=== PATIENT | male | born 1960 | race Caucasian/White ===

== ENCOUNTER 2025-01-13 09:20 | Outpatient (OUT) | payer OTHER, SELFPAY ==
[2025-01-13 09:55] LABS: Basophils Percent Auto 0.4 % (0.2-2.0); Eosinophils Absolute Auto 0.1 10^3/uL (0.0-0.7); Eosinophils Percent Auto 2.1 % (0.9-7.0); Hemoglobin 16.8 g/dL (14.0-18.0); Immature Granulocytes Abs Auto 0.02 10^3/uL (0.00-0.03); Immature Granulocytes Pct Auto 0.4 % (0.0-0.5); Lymphocytes Absolute Auto 1.5 10^3/uL (1.2-3.8); Lymphocytes Percent Auto 31.7 % (20.5-60.0); Mean Corpuscular Hemoglobin 29.8 pg (25.9-34.0); Mean Corpuscular Volume 85.3 fL (80.0-94.0); Mean Platelet Volume 10.1 fL (9.5-13.5); Monocytes Absolute Auto 0.5 10^3/uL (0.3-0.8); Monocytes Percent Auto 11.5 % (1.7-12.0); Neutrophils Absolute Auto 2.5 10^3/uL (1.4-6.5); Neutrophils Percent Auto 53.9 % (43.0-75.0); Platelet Count 145 10^3/uL (150-450); Red Blood Count 5.63 10^6/uL (4.70-6.10); Red Cell Distribution Width 12.7 % (11.0-15.0); White Blood Count 4.7 10^3/uL (4.0-11.0)
[2025-01-13 10:03] LABS: Estimated Average Glucose 292 mg/dL; Glycohemoglobin A1C 11.8 % (4.5-6.2)
[2025-01-13 10:17] LABS: Creatinine Urine Random 68.54 mg/dL (20.00-300.00); Microalbum Creatinine Ratio Ur 55.4 mg/g (0.0-29.9); Microalbumin Urine Random 3.8 mg/dL (<=30.0)
[2025-01-13 10:21] LABS: Alanine Aminotransferase 30 U/L (16-63); Albumin Globulin Ratio 0.9; Albumin Level 3.5 g/dL (3.4-5.0); Alkaline Phosphatase 90 U/L (46-116); Anion Gap 13.2; Aspartate Amino Transferase 13 U/L (15-37); Bilirubin Total 0.6 mg/dL (0.2-1.0); Calcium 8.9 mg/dL (8.5-10.1); Carbon Dioxide 27.1 mmol/L (21.0-32.0); Chloride 96 mmol/L (98-107); Chol HDL Ratio 7.5; Cholesterol 306 mg/dL (<=200); Estimated GFR (African America >60 (>=60 mL/min/1.73m^2); Estimated GFR (Non-African Ame >60 (>=60 mL/min/1.73m^2); Globulin 3.8 g/dL; Glucose 360 mg/dL (74-106); HDL Cholesterol 41 mg/dL (40-60); Potassium 4.3 mmol/L (3.5-5.1); Sodium 132 mmol/L (136-145); Thyroid Stimulating Hormone 3.043 uIU/mL (0.358-3.740); Total Protein 7.3 g/dL (6.4-8.2); Triglycerides 1208 mg/dL (<=150); VLDL CHOLESTEROL 241.6 mg/dL
[2025-01-13 10:28] LABS: LDL Cholesterol Direct 99 mg/dL
== END 2025-01-13 09:21 | disposition home or self-care (01) ==
PROVIDERS: PCP Family Medicine; Visit Provider Family Medicine
DX: Z00.00 Encounter for general adult medical examination without abnormal findings (principal); E11.65 Type 2 diabetes mellitus with hyperglycemia; E78.5 Hyperlipidemia, unspecified; R07.9 Chest pain, unspecified; I49.8 Other specified cardiac arrhythmias
CPT/HCPCS: 36415; 80053; 80061; 82043; 82570; 83036; 83721; 84443; 85025; G0103

== ENCOUNTER 2025-01-19 09:51 | Outpatient (OUT) | payer OTHER, SELFPAY ==
--- OUTSIDE RECORDS SUMMARY | 2025-01-19 10:03 | XMS_ITS | CCD ---
Author Organization [facility] CliniSywv Care Team Providers Care Betting Agency Manager Name Role Phone CADEN CHARLES Attending Unavailable CADEN CHARLES Referring Unavailable SANJUANA, EMILY Golden Primary Care Unavailable Cardoza, Emily Golden Primary Care Provider [phone] SANJUANA, DR EMILY Golden Consulting Unavailable CARDOZA, DR EMILY Golden Primary Care Unavailable CARDOZA, DR EMILY Golden Attending Unavailable CARDOZA, DR EMILY Golden Admitting Unavailable ZIEBER, DR MARI Cardenas Consulting Unavailable CARDOZA, DR EMILY Golden Consulting Unavailable CARDOZA, DR EMILY Golden Primary Care Unavailable CARDOZA, DR EMILY Golden Attending Unavailable CARDOZA, DR EMILY Golden Admitting Unavailable CARDOZA, DR EMILY Golden Consulting Unavailable CARDOZA, DR EMILY Golden Primary Care Unavailable CARDOZA, DR EMILY Golden Attending Unavailable CARDOZA, DR EMILY Golden Admitting Unavailable CARDOZA, DR EMILY Golden Primary Care Unavailable CARDOZA, DR EMILY Golden Attending Unavailable CARDOZA, DR EMILY Golden Admitting Unavailable CARDOZA, DR EMILY Golden Consulting Unavailable CARDOZA, DR EMILY Golden Primary Care Unavailable CARDOZA, DR EMILY Golden Attending Unavailable CARDOZA, DR EMILY Golden Admitting Unavailable CARDOZA, DR EMILY Golden Consulting Unavailable CARDOZA, DR EMILY Golden Primary Care Unavailable CARDOZA, DR EMILY Golden Attending Unavailable CARDOZA, DR EMILY Golden Admitting Unavailable [place], DR SAMI Zendejas Consulting Unavailable CARDOZA, DR EMILY Golden Consulting Unavailable CARDOZA, DR EMILY Golden Primary Care Unavailable CARDOZA, DR EMILY Golden Attending Unavailable CARDOZA, DR EMILY Golden Admitting Unavailable CARDOZA, DR EMILY Golden Consulting Unavailable CARDOZA, DR EMILY Golden Primary Care Unavailable CARDOZA, DR EMILY Golden Attending Unavailable CARDOZA, DR EMILY Golden Admitting Unavailable ZIEBER, DR MARI Cardenas Consulting Unavailable CARDOZA, DR EMILY Golden Consulting Unavailable CARDOZA, DR EMILY Golden Primary Care Unavailable CARDOZA, DR EMILY Goledn Attending Unavailable CARDOZA, DR EMILY Golden Admitting Unavailable TIMMIS, DR LORENZO Consulting Unavailable CARDOZA, DR EMILY Golden Primary Care Unavailable TIMMIS, DR LORENZO Attending Unavailable DR BJ LEDESMA Admitting Unavailable DR SAMI TEJEDA V Consulting Unavailable DR EMILY CARDOZA Consulting Unavailable DR EMILY CARDOZA Primary Care Unavailable DR EMILY CARDOZA Attending Unavailable DR EMILY CARDOZA Admitting Unavailable DR SAMI TEJEDA V Consulting Unavailable Medications Current Medications Medication Drug Class(es) Dates Sig (Normalized) Sig (Original) azithromycin 250 mg oral tablet (1 source) Macrolide Antimicrobial Start: 01-10-2025 Azithromycin 250 mg tablet Active 0 PO .COMPLEX January 10, 2025 12:00am For 250 mg dose pack: take 500 mg today (day 1), then 250 mg for 4 days (days 2-5) PO Completed/Discontinued Medications Medication Drug Class(es) Dates Sig (Normalized) Sig (Original) iopamidol (ISOVUE-370) 76 % injection 75 mL (1 source) Start: 09-08-2019 End: 09-08-2019 iopamidol (ISOVUE-370) 76 % injection 75 mL Problems Active Problems Problem Classification Problem Date Documented Date Episodic/Chronic Diabetes mellitus with complications (14 sources) Type 2 diabetes mellitus with diabetic polyneuropathy; Translations: [Type 2 diabetes mellitus with unspecified complications] Onset: 01-10-2021 Chronic Diabetes mellitus without complication (1 source) Type 2 diabetes mellitus without complications; Translations: [TYPE 2 DM WITHOUT COMPLICATIONS] Onset: 03-16-2021 Chronic Disorders of lipid metabolism (4 sources) Pure hyperglyceridemia; Translations: [Pure hypercholesterolemia, unspecified] Onset: 01-12-2021 01-10-2025 Chronic Malaise and fatigue (1 source) Other fatigue; Translations: [OTHER FATIGUE] Onset: 10-20-2021 Episodic Nonspecific chest pain (6 sources) Chest pain, unspecified; Translations: [Chest pain] Onset: 03-12-2021 Episodic Spondylosis; intervertebral disc disorders; other back problems (1 source) Other cervical disc degeneration, cervicothoracic region; Translations: [OTH CERV DISC DEGENERATION CT RGN] Onset: 02-01-2021 Chronic Thyroid disorders (4 sources) Hypothyroidism, unspecified; Translations: [HYPOTHYROIDISM UNSPECIFIED] Onset: 10-19-2021 Chronic Unclassified (2 sources) CONTACT W/AND (SUSP) EXPOS COVID-19; Translations: [CONTACT W/AND (SUSP) EXPOS COVID-19] Onset: 10-27-2021 Viral infection (1 source) COVID-19; Translations: [COVID-19] Onset: 10-27-2021 Past or Other Problems Problem Classification Problem Date Documented Date Episodic/Chronic Other ear and sense organ disorders (4 sources) Tinnitus, left ear; Translations: [TINNITUS LEFT EAR] Onset: 05-10-2021 Episodic Other non-traumatic joint disorders (1 source) Pain in left hip; Translations: [PAIN IN LEFT HIP] Onset: 08-24-2021 Episodic Other non-traumatic joint disorders (1 source) Pain in right shoulder; Translations: [PAIN IN RIGHT SHOULDER] Onset: 02-01-2021 Episodic Other non-traumatic joint disorders (1 source) Pain in left shoulder; Translations: [PAIN IN LEFT SHOULDER] Onset: 02-01-2021 Episodic Other skin disorders (1 source) Mass of neck; Translations: [Neck mass] Episodic Spondylosis; intervertebral disc disorders; other back problems (5 sources) Cervicalgia; Translations: [Spinal stenosis, cervicothoracic region] Onset: 01-29-2021 Episodic Unclassified (1 source) CONTACT W/AND (SUSP) EXPOS COVID-19; Translations: [CONTACT W/AND (SUSP) EXPOS COVID-19] Onset: 10-22-2021 Results Test Name Value Interpretation Reference Range Facility [facility] 08-18-2023 Forms [id number] Normal [facility] Covid-19 PCR (CVDTBH)on SARS-CoV-2 (COVID-19) RNA BELLE+probe Ql (Unsp spec) Detected Critically abnormal NOT DETECTED The [facility] Comment on above: Result Comment: This test is not yet approved or cleared by the [place] FDA. When there are no FDA-approved or cleared tests available, and other criteria are met, FDA can make tests available under an emergency access mechanism called an Emergency Use Authorization (EUA). The EUA for this test is supported by the Gift Basket Packer of Health and Human Service's (HHS's) declaration that circumstances exist to justify the emergency use of in vitro diagnostics for the detection and/or diagnosis of the virus that causes COVID-19. This EUA will remain in effect (meaning this test can be used) for the duration of the COVID-19 declaration justifying emergency of IVDs, unless it is terminated or revoked by FDA (after which the test may no longer be used). Performed By: #### M ISC #### [facility] [address] [place] [address] Dr. Eva Silva US THYROIDon 10-19-2021 US THYROID EXAMINATION: US THYROID HISTORY: Hypothyroidism COMPARISON: No relevant comparison available. TECHNIQUE: Sonographic images of the thyroid gland were obtained. FINDINGS: The right thyroid lobe is normal in size, contour and homogeneous echotexture with no nodule. The lobe measures 4.2 x 1.2 x 1.5 cm. The thyroid isthmus measures 3.2 mm, no nodule. The left thyroid lobe is normal in size, contour and homogeneous echotexture without contrast. The lobe measures 4.1 x 1.2 x 1.8 cm IMPRESSION: Normal exam Electronically authenticated by: SAMI TEJEDA Date: 2021-10-19 11:51 Normal [facility] FREE T3on 10-15-2021 FREE T3 2.73 pg/mlL Critically low 2.77-5.27 [facility] Comment on above: Performed By: #### M ISC #### [facility] [address] [place] [address] Dr. Eva Silva FREE T4on 10-15-2021 Free T4 [Mass/Vol] 0.75 ng/dL Critically low 0.78-2.19 [facility] Comment on above: Performed By: #### F T4 #### [facility] [address] [place] [address] Dr. Eva Silva GLYCOHEMOGLOBIN A1Con 2020 ADA RECOMMENDATION ADA THERAPEUTIC TARGET 6.0 - 7.0 ACTION SUGGESTED > 7.0 [facility] Comment on above: Result Comment: lanre gelacio Performed By: #### A 1C #### [facility] [address] [place] [address] Dr. Eva Silva Glucose [Mass/Vol] 235 mg/dL Normal [facility] Comment on above: Performed By: #### A 1C #### [facility] [address] [address] [address] Eva Silva HbA1c (Bld) [Mass fraction] 9.8 % Critically high <=6.0 [facility] Comment on above: Performed By: #### A 1C #### [facility] [address] [address] [address] Eva Silva LAB TESTINGon 10-15-2021 RECV HEADER SEE SCANNED REPORT IN HPF Normal [facility] Comment on above: Performed By: #### M ISC #### [facility] [address] [address] [address] Eva Silva REV FROM REF LAB 10/18/2021 Normal [facility] Comment on above: Performed By: #### M ISC #### [facility] [address] [place] [address] Dr. Eva Silva SENT TO REF LAB sent 10/15/21 for CMP14; lipemia Normal [facility] Comment on above: Performed By: #### M ISC #### [facility] [address] [place] [address] Dr. Eva Silva TSHon 10-15-2021 TSH 2.225 uIU/mL Normal 0.470-4.680 [facility] Comment on above: Performed By: #### M ISC #### [facility] [address] [place] [address] Dr. Eva Silva TSH RANGE SEE BELOW Normal [facility] Comment on above: Result Comment: <0.3 4 UIU/ml HYPERTHYROID 0.34-5.60 UIU/ml EUTHYROID >5.60 UIU/ml HYPOTHYROID Performed By: #### M ISC #### [facility] [address] [place] [address] Dr. Eva Silva PROF CHEM 8 (BAS METB)on Anion gap [Moles/Vol] 10.2 mmol/L Normal [facility] Comment on above: Performed By: #### B MP #### [facility] [address] [place] [address] Dr. Eva Silva Calcium [Mass/Vol] 8.8 mg/dL Normal 8.4-10.2 [facility] Comment on above: Performed By: #### B MP #### [facility] [address] [address] [address] Eva Silva Chloride [Moles/Vol] 100 mmol/L Normal 98-107 [facility] Comment on above: Performed By: #### B MP #### [facility] [address] [address] [address] Eva Silva CO2 [Moles/Vol] 29.3 mmol/L Normal 22.0-30.0 [facility] Comment on above: Performed By: #### B MP #### [facility] [address] [address] [address] Eva Silva Creatinine [Mass/Vol] 0.67 mg/dL Normal 0.66-1.25 [facility] Comment on above: Performed By: #### B MP #### [facility] [address] [place] [address] Dr. Eva Silva EGFR-AF QATARI >60 Normal >=60 [facility] Comment on above: Performed By: #### B MP #### [facility] [address] [address] [address] Eva Silva EGFR-NON AF QATARI >60 Normal >=60 [facility] Comment on above: Performed By: #### B MP #### [facility] [address] [place] [address] Dr. Eva Silva Glucose [Mass/Vol] 225 mg/dL Critically high 74-106 [facility] Comment on above: Performed By: #### B MP #### [facility] [address] [address] [address] Eva Silva Potassium [Moles/Vol] 4.5 mmol/L Normal 3.4-5.0 [facility] Comment on above: Performed By: #### B MP #### [facility] [address] [address] [address] Eva Silva Sodium [Moles/Vol] 135 mmol/L Critically low 137-145 [facility] Comment on above: Performed By: #### B MP #### [facility] [address] [address] [address] Eva Silva Urea nitrogen [Mass/Vol] 14.0 mg/dL Normal 9.0-20.0 [facility] Comment on above: Performed By: #### B MP #### [facility] [address] [address] [address] Eva Silva Urea nitrogen/Creatinine [Mass ratio] 20.9 mg/mg Normal [facility] Comment on above: Performed By: #### B MP #### [facility] [address] [address] [address] Eva Silva CNCOon 07-16-2021 CNCO Letter Text Normal [facility] CNOVon 07-12-2021 CNOV Office Visit (EVELYN) MAHIN TAPIA ([id number]) 1960 M Date Time Provider Department 07/12/21 2:20 PM SUZANNE BOYLE During your visit today, we recorded the following information about you: Temperature Pulse Blood pressure Weight 98.4 degrees 70/minute 126/81 98.2 kg Height 1.829 m Moon Reilly Ma 07/12/2021 1:09 PM Signed What is the reason for your visit today? est Who is your referring physician? Dr. Boyle Are you having poor oral intake? NO Have you had unintentional weight loss of 15 lbs/7 Kg in the last 3-6 months? NO Bowels: regular Wound: clean AND dry Temperature: No Drains: No Reese Winchester MD 07/12/2021 3:41 PM Signed General Surgery New Patient Clinic Note CHIEF COMPLAINT: Incisional hernias HPI: This is a 61 year old male who presents for evaluation of recurrent incisional hernias. Patient has a history of HTN, hyperlipidemia, pancreatitis, and poorly controlled diabetes. He has a history of severe pancreatitis in ~2004 for which he underwent an exploratory laparotomy and appendectomy. This was complicated by a ventral incisional hernia for which he had retromuscular repair with GoreTex mesh in 2006. He had recurrence soon after this surgery. No bowel obstructions, the hernias do not cause him pain. He was evaluated in [address] Boyle and was scheduled for AWR, however, due to his very poor blood glucose control A1c >11 this surgery was cancelled. He returns to clinic to discuss reconsideration of hernia repair - of note, recent A1c is reportedly 10.3, he takes metformin and no insulin for DM. FHx: No family history of bleeding or clotting disorders. SocHx: Social History Tobacco Use - Smoking status: Former Smoker Packs/day: 1.00 Years: 6.00 Pack years: 6.00 Types: Cigarettes Quit date: 1978 Years since quittin.6 - Smokeless tobacco: Never Used Vaping Use - Vaping Use: Never used Substance Use Topics - Alcohol use: Not on file - Drug use: Not on file Prior to Admission Medications: FARXIGA 5 mg tablet Take 5 mg by mouth every morning. atorvastatin (LIPITOR) 40 mg tablet Take 1 tablet by mouth once daily. metFORMIN (GLUCOPHAGE) 500 mg tablet Take 2 tablets by mouth once daily. ALLERGIES: ALLERGIES Allergen Reactions - Amoxicillin Itching COMPLETE REVIEW OF SYSTEMS: GENERAL: No weight loss, malaise or fevers HEENT: Negative for frequent or significant headaches, No changes in hearing or vision, no nose bleeds or other nasal problems RESPIRATORY: Negative for cough, hemoptysis, wheezing, COPD, dyspnea or shortness of breath CARDIOVASCULAR: Negative for chest pain, leg swelling, hypertension, CHF or palpitations GI: No nausea, vomiting, or diarrhea : No history of dysuria, frequency or incontinence MUSCULOSKELETAL: Negative for joint pain or swelling, back pain or muscle pain HEMATOLOGY/LYMPHOLOG Y Negative for prolonged bleeding, bruising easily or swollen nodes ENDOCRINE: Negative for cold or heat intolerance, polyuria, polydipsia and goiter NEURO: No history of headaches, syncope, paralysis, seizures or tremors PHYSICAL EXAM: BP 126/81 Pulse 70 Temp (Src) 98.4 (Tympanic) Ht 6' 0 (1.83m) Wt 216 lb 6.4 oz (98.2kg) BMI 29.34 kg/(m2). Constitutional: The patient is well-developed, well-nourished, and in no distress. Head: Normocephalic and atraumatic. Eyes: Pupils are equal, round, and reactive to light. EOM are normal. Neck: Normal range of motion. Neck supple. Cardiovascular: Regular rhythm and normal heart sounds. Pulmonary/Chest: Effort normal and breath sounds normal. Abdominal: Soft. Nontender. Multiple incisional hernias, reducible and soft. Musculoskeletal: Normal range of motion. Neurological: He is alert. GCS score is 15. Skin: Skin is warm and dry. Psychiatric: Affect and judgment normal. CT abd/pelvis reviewed: Multiple ventral incisional hernias containing small bowel A: 61 year old male with recurrent incisional hernias following retromuscular repair with GoreTex in 2006. He had planned for repair in 2019 by this was cancelled due to poor blood glucose control. He returns today to discuss consideration of repair, still with poor A1c. We will refer to endocrinology to optimize his blood glucose and consider repair following. P: - refer to endocrinology - RTC 3 months Resee Winchester MD General Surgery, PGY-5 Pager: [phone] Suzanne Boyle MD 07/12/2021 3:41 PM Signed Patient returns and hernia is stable, but a1c is still over 10. We are setting him up with our endocrine team and hopefully we can get it below 7 and plan for surgery. I'll see him back in 3 months to hopefully schedule surgery. I have seen and evaluated the patient and discussed the case with the resident physician. I agree with the assessment and plan as documented in the reside (more content not included)... Normal [facility] CBC AUTO DIFFon 06-21-2021 BASO # 0.0 103/ul Normal 0.0-0.1 The [facility] Comment on above: Performed By: #### M ISC #### [facility] [address] [place], [place] [address] Dr. Eva Silva Basophils/100 WBC (Bld) 0.2 % Normal 0.2-2.0 [facility] Comment on above: Performed By: #### M ISC #### [facility] [address] [place], [place] [address] Dr. Eva Silva EO # 0.1 103/ul Normal 0.0-0.7 [facility] Comment on above: Performed By: #### M ISC #### [facility] [address] [place] [address] Dr. Eva Silva Eosinophils/100 WBC (Bld) 2.1 % Normal 0.9-7.0 [facility] Comment on above: Performed By: #### M ISC #### [facility] [address] [place] [address] Dr. Eva Silva Erythrocyte distribution width (RBC) [Ratio] 13.0 % Normal 11.0-15.0 [facility] Comment on above: Performed By: #### M ISC #### [facility] [address] [place] [address] Dr. Eva Silva Hematocrit (Bld) [Volume fraction] 44.1 % Normal 42.0-54.0 [facility] Comment on above: Performed By: #### M ISC #### [facility] [address] [place] [address] Dr. Eva Silva Hemoglobin (Bld) [Mass/Vol] 15.2 g/dL Normal 14.0-18.0 [facility] Comment on above: Performed By: #### M ISC #### [facility] [address] [place] [address] Dr. Eva Silva IG # 0.01 10e3/ul Normal 0.00-0.03 [facility] Comment on above: Performed By: #### M ISC #### [facility] [address] [place] [address] Dr. Eva Silva IG % 0.2 % Normal 0.0-0.5 [facility] Comment on above: Performed By: #### M ISC #### [facility] [address] [place] [address] Dr. Eva Silva LYMPH # 1.4 103/ul Normal 1.2-3.8 [facility] Comment on above: Performed By: #### M ISC #### [facility] [address] [place] [address] Dr. Eva Silva Lymphocytes/100 WBC (Bld) 32.9 % Normal 20.5-60.0 [facility] Comment on above: Performed By: #### M ISC #### [facility] [address] [place] [address] Dr. Eva Silva MANUAL DIFF REQ NO Normal [facility] Comment on above: Performed By: #### M ISC #### [facility] [address] [place] [address] Dr. Eva Silva MCH (RBC) [Entitic mass] 30.2 pg Normal 25.9-34.0 [facility] Comment on above: Performed By: #### M ISC #### [facility] [address] [place] [address] Dr. Eva Silva MCHC (RBC) [Mass/Vol] 34.5 g/dL Normal 29.9-35.2 [facility] Comment on above: Performed By: #### M ISC #### [facility] [address] [place] [address] Dr. Eva Silva MCV (RBC) [Entitic vol] 87.5 fL Normal 80.0-94.0 [facility] Comment on above: Performed By: #### M ISC #### [facility] [address] [place] [address] Dr. Eva Silva MONO # 0.5 103/ul Normal 0.3-0.8 [facility] Comment on above: Performed By: #### M ISC #### [facility] [address] [place] [address] Dr. Eva Silva Monocytes/100 WBC (Bld) 12.8 % Critically high 1.7-12.0 [facility] Comment on above: Performed By: #### M ISC #### [facility] [address] [place] [address] Dr. Eva Silva NEUT # 2.2 103/ul Normal 1.4-6.5 [facility] Comment on above: Performed By: #### M ISC #### [facility] [address] [place] [address] Dr. Eva Silva Neutrophils/100 WBC (Bld) 51.8 % Normal 43.0-75.0 [facility] Comment on above: Performed By: #### M ISC #### [facility] [address] [place] [address] Dr. Eva Silva Platelet mean volume (Bld) [Entitic vol] 10.1 fL Normal 9.5-13.5 [facility] Comment on above: Performed By: #### M ISC #### [facility] [address] [place] [address] Dr. Eva Silva PLT 162 103/ul Normal 150-450 [facility] Comment on above: Performed By: #### M ISC #### [facility] [address] [place] [address] Dr. Eva Silva RBC 5.04 106/ul Normal 4.70-6.10 [facility] Comment on above: Performed By: #### M ISC #### [facility] [address] [place] [address] Dr. Eva Silva WBC 4.2 103/ul Normal 4.0-11.0 [facility] Comment on above: Performed By: #### M ISC #### [facility] [address] [place] [address] Dr. Eva Silva PROF 14(COMP METB)on 021 Albumin [Mass/Vol] 3.7 g/dL Normal 3.5-5.0 [facility] Comment on above: Performed By: #### C MP #### [facility] [address] [place], [place] [id number] Octaviano Opal Albumin/Globulin [Mass ratio] 1.1 {ratio} Normal [facility] Comment on above: Performed By: #### C MP #### [facility] [address] [place] [address] Octaviano Opal ALP [Catalytic activity/Vol] 61 U/L Normal 38-126 [facility] Comment on above: Performed By: #### C MP #### [facility] [address] [place] [address] Octaviano Opal ALT [Catalytic activity/Vol] 25 U/L Normal 21-72 [facility] Comment on above: Performed By: #### C MP #### [facility] [address] [address] Octaviano Opal Anion gap [Moles/Vol] 13.0 mmol/L Normal [facility] Comment on above: Performed By: #### C MP #### [facility] [address] [address] Octaviano Opal AST [Catalytic activity/Vol] 14 U/L Critically low 17-59 [facility] Comment on above: Performed By: #### C MP #### [facility] [address] [address] Octaviano Opal Bilirubin [Mass/Vol] 0.4 mg/dL Normal 0.2-1.3 [facility] Comment on above: Performed By: #### C MP #### [facility] [address] [place] [address] Octaviano Opal Calcium [Mass/Vol] 8.9 mg/dL Normal 8.4-10.2 [facility] Comment on above: Performed By: #### C MP #### [facility] [address] [place] [address] Octaviano Opal Chloride [Moles/Vol] 102 mmol/L Normal 98-107 [facility] Comment on above: Performed By: #### C MP #### [facility] [address] [place] [address] Octaviano Opal CO2 [Moles/Vol] 28.1 mmol/L Normal 22.0-30.0 [facility] Comment on above: Performed By: #### C MP #### [facility] [facility] [address] [place] [address] Octaviano Opal Creatinine [Mass/Vol] 0.83 mg/dL Normal 0.66-1.25 [facility] Comment on above: Performed By: #### C MP #### [facility] [address] [place], [place] [id number] Octaviano Opal EGFR-AF QATARI >60 Normal >=60 [facility] Comment on above: Performed By: #### C MP #### [facility] [address] [place] [address] Octaviano Opal EGFR-NON AF QATARI >60 Normal >=60 [facility] Comment on above: Performed By: #### C MP #### [facility] [address] [place], [place] [address] Octaviano Opal Globulin (S) [Mass/Vol] 3.3 g/dL Normal [facility] Comment on above: Performed By: #### C MP #### [facility] [address] [id number] Octaviano Opal Glucose [Mass/Vol] 238 mg/dL Critically high 74-[address] [facility] Comment on above: Performed By: #### C MP #### [facility] [address] [id number] Octaviano Opal Potassium [Moles/Vol] 4.1 mmol/L Normal 3.4-5.0 [facility] Comment on above: Performed By: #### C MP #### [facility] [address] [id number] Octaviano Opal Protein [Mass/Vol] 7.0 g/dL Normal 6.1-8.2 [facility] Comment on above: Performed By: #### C MP #### [facility] [address] [id number] Octaviano Opal Sodium [Moles/Vol] 139 mmol/L Normal 137-145 [facility] Comment on above: Performed By: #### C MP #### [facility] [address] [id number] Octaviano Opal Urea nitrogen [Mass/Vol] 16.0 mg/dL Normal 9.0-20.0 [facility] Comment on above: Performed By: #### C MP #### [facility] [address] [id number] Octaviano Opal Urea nitrogen/Creatinine [Mass ratio] 19.3 mg/mg Normal [facility] Comment on above: Performed By: #### C MP #### [facility] [address] [place], [place] [address] Octaviano Opal DIRECT LDLon 06-11-2021 Cholesterol in LDL [Mass/Vol] 77 mg/dL Normal [facility] Comment on above: Performed By: #### D LDL, LIPID #### [facility] [address] [place], [place] [address] Octaviano Joseph DLDL NORMAL SEE BELOW Normal [facility] Comment on above: Result Comment: <100 mg/dl OPTIMAL 100 - 129 mg/dl NEAR OR ABOVE OPTIMAL 130 - 159 mg/dl BORDERLINE HIGH 160 - 189 mg/dl HIGH >190 mg/dl VERY HIGH Performed By: #### D LDL, LIPID #### [facility] [address] [place], [place] [address] Octaviano Joseph GLYCOHEMOGLOBIN A1Con 2020 ADA RECOMMENDATION ADA THERAPEUTIC TARGET 6.0 - 7.0 ACTION SUGGESTED > 7.0 Normal [facility] Comment on above: Performed By: #### A 1C #### [facility] [address] [place], [place] [address] Octaviano Opal Glucose [Mass/Vol] 249 mg/dL Normal [facility] Comment on above: Performed By: #### A 1C #### [facility] [address] [place], [place] [address] Octaviano Joseph HbA1c (Bld) [Mass fraction] 10.3 % Critically high <=6.0 [facility] Comment on above: Performed By: #### A 1C #### [facility] [address] [place], [place] [address] Octaviano Joseph LIPID PROFILEon 06-11-2021 CHOL-HDL RATIO NORM SEE BELOW Normal [place] Comment on above: Result Comment: 3.3 - 4.4 LOW RISK 4.4 - 7.1 AVERAGE RISK 7.1 - 11.0 MODERATE RISK >11.0 HIGH RISK Performed By: #### D LDL, LIPID #### [facility] [address] [place], [place] [address] Octaviano Opal Cholesterol [Mass/Vol] 228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 with poor A1c. We will refer to endocrinology to optimize his blood glucose and consider repair following. P: - refer to endocrinology - RTC 3 months Reese Winchester MD General Surgery, PGY-5 Pager: [phone] [facility] Clinical Note 05-10-2021 Note Date & Type Note Facility 05-10-2021 Note PROCEDURE: MRI BRAIN WO W CON COMPARISON: None. HISTORY: Tinnitus of left ear TECHNIQUE: A variety of imaging planes and parameters were utilized for visualization of suspected pathology. Images were performed without and with 20 ml intravenous Dotarem contrast. FINDINGS: IACS: No evidence of acoustic schwannoma or other posterior fossa mass. INNER EARS: No abnormal signal intensity. MIDDLE EARS: No fluid or abnormal soft tissue. MASTOIDS: No fluid or abnormal soft tissue. SKULL BASE: Negative. Cavernous sinus and Meckel's caves are normal. CEREBRUM: No edema, hemorrhage, mass, acute infarction, or inappropriate atrophy. Mild scattered hyperintense foci are present, typical for a patient of this age, most commonly caused by small vessel ischemic changes. CEREBELLUM: No edema, hemorrhage, mass, acute infarction, or inappropriate atrophy. BRAINSTEM: No edema, hemorrhage, mass, acute infarction, or inappropriate atrophy. CSF SPACES: Ventricles, cisterns, and sulci are appropriate for age. No hydrocephalus, subarachnoid hemorrhage, or mass. SINUSES: Limited views demonstrate no significant mucosal thickening or fluid. ORBITS: Limited views are unremarkable. OTHER: No abnormal meningeal or parenchymal enhancement. IMPRESSION: Mild scattered white matter signal abnormality, nonspecific. Chronic small vessel ischemic changes favored No focal or enhancing mass to suggest an acoustic schwannoma Electronically authenticated by: SAMI TEJEDA Date: 2021-05-10 11:30 [facility] Evaluation note Note Date & Type Note Facility Evaluation note Diagnosis Onset Date Resolution Chest pain acute January 10, 2025 10:16am Hyperlipidemia acute December 192024 10:16am Type 2 diabetes mellitus with hyperglycemia acute December 10:16am [facility] Work Phone: Summary Purpose Family History No Family History Records FoundNo Family History Records FoundNo Family History Records FoundNo Family History Records Found Advance Directives Documents on File Type Date Recorded 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 Advance Directives and Livin g Will 09/08/2019 3:31 PM Advance Directive Response Recorded Date/ Time Advance Directives No December 11:34am Reason for Referral Status Reason Specialty Diagnoses / Procedures Referred By Contact Referred To Contact Pending Review Radiology Diagnoses Neck mass Procedures CT Soft Tissue Neck With Contrast Caden Charles, DDS [address] [place] [address] Assessments Diagnosis Neck mass Swelling, mass, or lump in head and neck Chief Complaint and Reason for Visit Chief Complaint Admit Date Est Care/No VM Box January 10, 2025 10:16am Reason for Visit Admit Date Chest pain January 10, 2025 10:16am Hyperlipidemia January 10, 2025 10:16am Type 2 diabetes mellitus with hyperglyce kelli January 10, 2025 10:16am Additional Source Comments (unrecognized sect ion and content) No Status Records FoundNo Status Records FoundNo Status Records FoundNo Status Records Found INFORMATION SOURCE (unrecogn ized section and content) DATE CREATED AUTHOR 09/10/2019 [facility] DATE CREATED AUTHOR AUTHOR'S ORGANIZ ATION 12/27/2021 [facility] DATE CREATED AUTHOR AUTHOR'S ORGANIZ ATION 01/07/2022 [facility] DATE CREATED AUTHOR AUTHOR'S ORGANIZ ATION 08/23/2023 [facility] Reason for Visit (unrecogniz ed section and content) Status Reason Specialty Diagnoses / Procedures Referred By Contact Referred To Contact Pending Review Radiology Diagnoses Neck mass Procedures CT Soft Tissue Neck With Contrast Caden Charles, DDS [address] [place] [address] Care Teams (unrecognized sec tion and content) Team Status: Active Member Role Status Dates Emily Cardoza MD Primary Care Provider Active Team Status: Inactive Member Role Status Dates Emily Cardoza MD Primary Care Provider Active S tart: January 10, 2025 End: January 10, 2025 Nai Fung MD Attending Provider Active St art: January 10, 2025 End: January 10, 2025 Goals (unrecognized section and content) Goals may be documented in a n alternate section FOR RECORDS PERTAINING TO PATIENTS WHO ARE OR HAVE BEEN ENROLLED IN A CHEMICAL DEPENDENCY/SUBSTANCEABUSE PROGRAM, SOME INFORMATION MAY BE OMITTED. This clinical summary was aggregated from multiple sources. Caution should be exercised in using it in the provision of clinical care. This summary normalizes information from multiple sources, and as a consequence, information in this document may materially change the coding, format and clinical context of patient data. In addition, data may be omitted in some cases. CLINICAL DECISIONS SHOULD BE BASED ON THE PRIMARY CLINICAL RECORDS. [facility] provides no warranty or guarantee of the accuracy or completeness of information in this document.
--- NOTE | 2025-01-19 10:07 | ECG_ITS ---
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 Measurements Intervals [place] Rate: 59 P: 42 WA: 197 QRS: 34 QRSD: 95 T: 10 QT: 404 QTc: 401 Interpretive Statements SINUS BRADYCARDIA Compared to ECG 09/23/2020 12:33:52 No significant change seen Electronically Signed On 01-20-2025 6:27:04 EST by CHANCE TRAORE M.D.
== END 2025-01-19 09:52 | disposition home or self-care (01) ==
LOC: CARD 09:51
PROVIDERS: PCP Family Medicine; Visit Provider Internal Medicine
DX: R07.9 Chest pain, unspecified (principal); I49.9 Cardiac arrhythmia, unspecified; R00.1 Bradycardia, unspecified
CPT/HCPCS: 93005; 93242

== ENCOUNTER 2025-02-01 07:26 | Outpatient (OUT) | payer OTHER, SELFPAY ==
--- NOTE | 2025-02-01 | PCN_ITS ---
CARDIAC STRESS TEST Requesting Physician: Nai uFng M.D. Procedure Date: 02/01/2025 LEXISCAN STRESS TEST INDICATIONS FOR THE TEST: Chest pain and palpitations. The procedure in detail, including risks and benefits, was discussed with the patient and he was agreeable to proceed. The stress test was initiated as a treadmill stress test. Patient?s resting heart rate was 64 beats per minute and blood pressure 137/106 mm/Hg. The patient was exercised according to standard Pancho protocol and he was able to finish 7 minutes and 37 seconds, achieving max heart rate of 126 beats per minute, which represents 80% of age predicted maximum heart rate, and peak blood pressure 156/90. He could not continue due to dyspnea; therefore, he was switched to a Lexiscan study. Lexiscan 0.4 mg IV was injected and the patient was monitored for a few minutes after that. Peak blood pressure throughout the test was 156/90 mm/Hg. As mentioned above, the patient had dyspnea; however, he did not have any chest, neck, jaw or arm discomfort. Resting 12 lead EKG showed normal sinus rhythm, normal EKG. During the treadmill portion of the stress test, the patient did not have any significant T or ST changes or any arrhythmias. He had one single isolated PVC. During the Lexiscan portion of the test, also, there was no significant T or ST changes or any arrhythmias. CONCLUSION: 1. The patient started as a treadmill stress test, and he was able to finish 7 minutes and 37 seconds of exercise, achieving 80% of age predicted maximum heart rate, which was not associated with any ischemic EKG changes or chest pain or arrhythmias. 2. The Lexiscan EKG stress test was negative for evidence of ischemia. 3. The nuclear images result will be reported separately. [facility]
--- OUTSIDE RECORDS SUMMARY | 2025-02-01 07:30 | XMS_ITS | CCD ---
Author Organization [facility] CliniSyor Care Team Providers Care Drilling Fluids Specialist Name Role Phone CADEN CHARLES Attending Unavailable CADEN CHARLES Referring Unavailable SANJUANA, EMILY Golden Primary Care Unavailable Cardoza, Emily Golden Primary Care Provider [phone] SANJUANA, DR EMILY Golden Consulting Unavailable CARDOZA, [...] Unavailable CARDOZA, DR EMILY Golden Admitting Unavailable [place], DR SAMI Zendejas Consulting Unavailable CARDOZA, DR [...] Interpretation Reference Range Facility [facility] 08-18-2023 Forms [id number] Normal [facility] Covid-19 PCR (CVDTBH)on SARS-CoV-2 (COVID-19) RNA BELLE+probe Ql (Unsp spec) Detected Critically abnormal NOT DETECTED [facility] Comment on above: Result Comment: This test is not yet approved or cleared by the [place] FDA. When there are no FDA-approved or cleared tests available, and other criteria are met, FDA can make tests available under an emergency access mechanism called an Emergency Use Authorization (EUA). The EUA for this test is supported by the Corporate Counselor of Health and Human Service's (HHS's) declaration [...] used). Performed By: #### M ISC #### [facility] [address] [place] [address] Dr. Eva Silva US THYROIDon 10-19-2021 US [...] by: SAMI TEJEDA Date: 2021-10-19 11:[address] [facility] FREE T3on 10-15-2021 FREE T3 2.73 pg/mlL Critically low 2.77-5.27 [facility] Comment on above: Performed By: #### M ISC #### [facility] [address] [place] [address] Dr. Eva Silva FREE T4on 10-15-2021 Free T4 [Mass/Vol] 0.75 ng/dL Critically low 0.78-2.19 [facility] Comment on above: Performed By: #### F T4 #### [facility] [address] [place] [address] Dr. Eva Silva GLYCOHEMOGLOBIN A1Con 2020 ADA RECOMMENDATION ADA THERAPEUTIC TARGET 6.0 - 7.0 ACTION SUGGESTED > 7.0 [facility] Comment on above: Result Comment: lanre gelacio Performed By: #### A 1C #### [facility] [address] [place] [address] Dr. Eva Silva Glucose [Mass/Vol] 235 mg/dL Normal [facility] Comment on above: Performed By: #### A 1C #### [facility] [address] [address] [address] Eva Silva HbA1c (Bld) [Mass fraction] 9.8 % Critically high <=6.0 [facility] Comment on above: Performed By: #### A 1C #### [facility] [address] [address] [address] Eva Silva LAB TESTINGon 10-15-2021 RECV HEADER SEE SCANNED REPORT IN HPF Normal [facility] Comment on above: Performed By: #### M ISC #### [facility] [address] [address] [address] Eva Silva REV FROM REF LAB 10/18/2021 Normal [facility] Comment on above: Performed By: #### M ISC #### [facility] [address] [place] [address] Dr. Eva Silva SENT TO REF LAB sent 10/15/21 for CMP14; lipemia Normal [facility] Comment on above: Performed By: #### M ISC #### [facility] [address] [place] [address] Dr. Eva Silva TSHon 10-15-2021 TSH 2.225 uIU/mL Normal 0.470-4.680 [facility] Comment on above: Performed By: #### M ISC #### [facility] [address] [place] [address] Dr. Eva Silva TSH RANGE SEE BELOW Normal [facility] Comment on above: Result Comment: <0.3 4 UIU/ml HYPERTHYROID 0.34-5.60 UIU/ml EUTHYROID >5.60 UIU/ml HYPOTHYROID Performed By: #### M ISC #### [facility] [address] [place] [address] Dr. Eva Silva PROF CHEM 8 (BAS METB)on Anion gap [Moles/Vol] 10.2 mmol/L Normal [facility] Comment on above: Performed By: #### B MP #### [facility] [address] [place] [address] Dr. Eva Silva Calcium [Mass/Vol] 8.8 mg/dL Normal 8.4-10.2 [facility] Comment on above: Performed By: #### B MP #### [facility] [address] [address] [address] Eva Silva Chloride [Moles/Vol] 100 mmol/L Normal 98-[address] [facility] Comment on above: Performed By: #### B MP #### [facility] [address] [address] [address] Eva Silva CO2 [Moles/Vol] 29.3 mmol/L Normal 22.0-30.0 [facility] Comment on above: Performed By: #### B MP #### [facility] [address] [address] [address] Eva Silva Creatinine [Mass/Vol] 0.67 mg/dL Normal 0.66-1.[address] [facility] Comment on above: Performed By: #### B MP #### [facility] [address] [place] [address] Dr. Eva Silva EGFR-AF FRENCH >60 Normal >=60 [facility] Comment on above: Performed By: #### B MP #### [facility] [address] [address] [address] Eva Silva EGFR-NON AF FRENCH >60 Normal >=[address] [facility] Comment on above: Performed By: #### B MP #### [facility] [address] [place] [address] Dr. Eva Silva Glucose [Mass/Vol] 225 mg/dL Critically high 74-106 [facility] Comment on above: Performed By: #### B MP #### [facility] [address] [address] [address] Eva Silva Potassium [Moles/Vol] 4.5 mmol/L Normal 3.4-5.[address] [facility] Comment on above: Performed By: #### B MP #### [facility] [address] [address] [address] Eva Silva Sodium [Moles/Vol] 135 mmol/L Critically low 137-145 [facility] Comment on above: Performed By: #### B MP #### [facility] [address] [address] [address] Eva Silva Urea nitrogen [Mass/Vol] 14.0 mg/dL Normal 9.0-20.[address] [facility] Comment on above: Performed By: #### B MP #### [facility] [address] [address] [address] Eva Silva Urea nitrogen/Creatinine [Mass ratio] 20.9 mg/mg Normal [facility] Comment on above: Performed By: #### B MP #### [facility] [address] [address] [address] Eva Silva CNCOon 07-16-2021 CNCO Letter Text Normal [facility] CNOVon 07-12-2021 CNOV Office Visit (EVELYN) MAHIN TAPIA ([id number]) 1960 M Date Time Provider Department 07/12/21 [...] Reese Winchester MD General Surgery, PGY-5 Pager: [phone] Suzanne Boyle MD 07/12/2021 3:41 PM Signed [...] the reside (more content not included)... Normal [facility] CBC AUTO DIFFon 06-21-2021 BASO # 0.0 103/ul Normal 0.0-0.1 [facility] Comment on above: Performed By: #### M ISC #### [facility] [address] [place], [place] [address] Dr. Eva Silva Basophils/100 WBC (Bld) 0.2 % Normal 0.2-2.[address] [facility] Comment on above: Performed By: #### M ISC #### [facility] [address] [place], [place] [address] Dr. Eva Silva EO # 0.1 103/ul Normal 0.0-0.[address] [facility] Comment on above: Performed By: #### M ISC #### [facility] [address] [place] [address] Dr. Eva Silva Eosinophils/100 WBC (Bld) 2.1 % Normal 0.9-7.[address] [facility] Comment on above: Performed By: #### M ISC #### [facility] [address] [place] [address] Dr. Eva Silva Erythrocyte distribution width (RBC) [Ratio] 13.0 % Normal 11.0-15.[address] [facility] Comment on above: Performed By: #### M ISC #### [facility] [address] [place] [address] Dr. Eva Silva Hematocrit (Bld) [Volume fraction] 44.1 % Normal 42.0-54.[address] [facility] Comment on above: Performed By: #### M ISC #### [facility] [address] [place] [address] Dr. Eva Silva Hemoglobin (Bld) [Mass/Vol] 15.2 g/dL Normal 14.0-18.[address] [facility] Comment on above: Performed By: #### M ISC #### [facility] [address] [place] [address] Dr. Eva Silva IG # 0.01 10e3/ul Normal 0.00-0.03 [facility] Comment on above: Performed By: #### M ISC #### [facility] [address] [place] [address] Dr. Eva Silva IG % 0.2 % Normal 0.0-0.5 [facility] Comment on above: Performed By: #### M ISC #### [facility] [address] [place] [address] Dr. Eva Silva LYMPH # 1.4 103/ul Normal 1.2-3.8 [facility] Comment on above: Performed By: #### M ISC #### [facility] [address] [place] [address] Dr. Eva Silva Lymphocytes/100 WBC (Bld) 32.9 % Normal 20.5-60.[address] [facility] Comment on above: Performed By: #### M ISC #### [facility] [address] [place] [address] Dr. Eva Silva MANUAL DIFF REQ NO Normal [facility] Comment on above: Performed By: #### M ISC #### [facility] [address] [place] [address] Dr. Eva Silva MCH (RBC) [Entitic mass] 30.2 pg Normal 25.9-34.[address] [facility] Comment on above: Performed By: #### M ISC #### [facility] [address] [place] [address] Dr. Eva Silva MCHC (RBC) [Mass/Vol] 34.5 g/dL Normal 29.9-35.[address] [facility] Comment on above: Performed By: #### M ISC #### [facility] [address] [place] [address] Dr. Eva Silva MCV (RBC) [Entitic vol] 87.5 fL Normal 80.0-94.[address] [facility] Comment on above: Performed By: #### M ISC #### [facility] [address] [place] [address] Dr. Eva Silva MONO # 0.5 103/ul Normal 0.3-0.[address] [facility] Comment on above: Performed By: #### M ISC #### [facility] [address] [place] [address] Dr. Eva Silva Monocytes/100 WBC (Bld) 12.8 % Critically high 1.7-12.[address] [facility] Comment on above: Performed By: #### M ISC #### [facility] [address] [place] [address] Dr. Eva Silva NEUT # 2.2 103/ul Normal 1.4-6.5 [facility] Comment on above: Performed By: #### M ISC #### [facility] [address] [place] [address] Dr. Eva Silva Neutrophils/100 WBC (Bld) 51.8 % Normal 43.0-75.0 [facility] Comment on above: Performed By: #### M ISC #### [facility] [address] [place] [address] Dr. Eva Silva Platelet mean volume (Bld) [Entitic vol] 10.1 fL Normal 9.5-13.[address] [facility] Comment on above: Performed By: #### M ISC #### [facility] [address] [place] [address] Dr. Eva Silva PLT 162 103/ul Normal 150-[address] [facility] Comment on above: Performed By: #### M ISC #### [facility] [address] [place] [address] Dr. Eva Silva RBC 5.04 106/ul Normal 4.70-6.[address] [facility] Comment on above: Performed By: #### M ISC #### [facility] [address] [place] [address] Dr. Eva Silva WBC 4.2 103/ul Normal 4.0-11.[address] [facility] Comment on above: Performed By: #### M ISC #### [facility] [address] [place] [address] Dr. Eva Silva PROF 14(COMP METB)on 021 Albumin [Mass/Vol] 3.7 g/dL Normal 3.5-5.0 [facility] Comment on above: Performed By: #### C MP #### [facility] [address] [place], [place] [address] Octaviano Opal Albumin/Globulin [Mass ratio] 1.1 {ratio} Normal [facility] Comment on above: Performed By: #### C MP #### [facility] [address] [place] [address] Octaviano Opal ALP [Catalytic activity/Vol] 61 U/L Normal 38-126 [facility] Comment on above: Performed By: #### C MP #### [facility] [address] [place] [address] Octaviano Opal ALT [Catalytic activity/Vol] 25 U/L Normal 21-[address] [facility] Comment on above: Performed By: #### C MP #### [facility] [address] [address] Octaviano Opal Anion gap [Moles/Vol] 13.0 mmol/L Normal [facility] Comment on above: Performed By: #### C MP #### [facility] [address] [address] Octaviano Opal AST [Catalytic activity/Vol] 14 U/L Critically low 17-59 [facility] Comment on above: Performed By: #### C MP #### [facility] [address] [address] Octaviano Opal Bilirubin [Mass/Vol] 0.4 mg/dL Normal 0.2-1.3 [facility] Comment on above: Performed By: #### C MP #### [facility] [address] [place] [address] Octaviano Opal Calcium [Mass/Vol] 8.9 mg/dL Normal 8.4-10.2 [facility] Comment on above: Performed By: #### C MP #### [facility] [address] [place] [address] Octaviano Opal Chloride [Moles/Vol] 102 mmol/L Normal 98-107 [facility] Comment on above: Performed By: #### C MP #### [facility] [address] [place] [address] Octaviano Opal CO2 [Moles/Vol] 28.1 mmol/L Normal 22.0-30.0 [facility] Comment on above: Performed By: #### C MP #### [facility] [address] [place] [address] Octaviano Opal Creatinine [Mass/Vol] 0.83 mg/dL Normal 0.66-1.25 [facility] Comment on above: Performed By: #### C MP #### [facility] [address] [place], [place] [address] Octaviano Opal EGFR-AF FRENCH >60 Normal >=60 [facility] Comment on above: Performed By: #### C MP #### [facility] [address] [place] [address] Octaviano Opal EGFR-NON AF FRENCH >60 Normal >=[address] [facility] Comment on above: Performed By: #### C MP #### [facility] [address] [place], [place] [address] Octaviano Opal Globulin (S) [Mass/Vol] 3.3 g/dL Normal [facility] Comment on above: Performed By: #### C MP #### [facility] [address] [id number] Octaviano Opal Glucose [Mass/Vol] 238 mg/dL Critically high 74-106 [facility] Comment on above: Performed By: #### C MP #### [facility] [address] [id number] Octaviano Opal Potassium [Moles/Vol] 4.1 mmol/L Normal 3.4-5.[address] [facility] Comment on above: Performed By: #### C MP #### [facility] [address] [phone] Octaviano Opal Protein [Mass/Vol] 7.0 g/dL Normal 6.1-8.2 [facility] Comment on above: Performed By: #### C MP #### [facility] [address] [phone] Octaviano Opal Sodium [Moles/Vol] 139 mmol/L Normal 137-145 [facility] Comment on above: Performed By: #### C MP #### [facility] [address] [phone] Octaviano Opal Urea nitrogen [Mass/Vol] 16.0 mg/dL Normal 9.0-20.[address] [facility] Comment on above: Performed By: #### C MP #### [facility] [address] [phone] Octaviano Opal Urea nitrogen/Creatinine [Mass ratio] 19.3 mg/mg Normal [facility] Comment on above: Performed By: #### C MP #### [facility] [address] [place], [place] [address] Octaviano Opal DIRECT LDLon 06-11-2021 Cholesterol in LDL [Mass/Vol] 77 mg/dL Normal [facility] Comment on above: Performed By: #### D LDL, LIPID #### [facility] [address] [place], [place] [address] Octaviano Joseph DLDL NORMAL SEE BELOW Normal [facility] Comment on above: Result Comment: <100 mg/dl OPTIMAL 100 - 129 mg/dl NEAR OR ABOVE OPTIMAL 130 - 159 mg/dl BORDERLINE HIGH 160 - 189 mg/dl HIGH >190 mg/dl VERY HIGH Performed By: #### D LDL, LIPID #### [facility] [address] [place], [place] [address] Octaviano Joseph GLYCOHEMOGLOBIN A1Con 2020 ADA RECOMMENDATION ADA THERAPEUTIC TARGET 6.0 - 7.0 ACTION SUGGESTED > 7.[address] [facility] Comment on above: Performed By: #### A 1C #### [facility] [address] [place], [place] [address] Octaviano Opal Glucose [Mass/Vol] 249 mg/dL Normal [facility] Comment on above: Performed By: #### A 1C #### [facility] [address] [place], [place] [address] Octaviano Joseph HbA1c (Bld) [Mass fraction] 10.3 % Critically high <=6.[address] [facility] Comment on above: Performed By: #### A 1C #### [facility] [address] [place], [place] [address] Octaviano Joseph LIPID PROFILEon 06-11-2021 CHOL-HDL RATIO NORM SEE BELOW Normal [facility] Comment on above: Result Comment: 3.3 - 4.4 LOW RISK 4.4 - 7.1 AVERAGE RISK 7.1 - 11.0 MODERATE RISK >11.0 HIGH RISK Performed By: #### D LDL, LIPID #### [facility] [address] [place], [place] [address] Octaviano Opal Cholesterol [Mass/Vol] 228 mg/dL Critically high <=[address] [facility] Comment on above: Performed By: #### D LDL, LIPID #### [facility] [address] [place], [place] [address] Octavianodora Joseph Cholesterol in HDL [Mass/Vol] 27 mg/dL Normal [facility] Comment on above: Performed By: #### D LDL, LIPID #### [facility] [address] [place], [place] [address] Octaviano Opal Cholesterol.total/Ch olesterol in HDL [Mass ratio] 8.4 {ratio} Normal [facility] Comment on above: Performed By: #### D LDL, LIPID #### [facility] [address] [place], [place] [address] Octaviano Opal HDL NORMAL > or = 60 mg/dl - LOW CARDIOVASCULAR RISK <40 mg/dl - HIGH CARDIOVASCULAR RISK Normal [facility] Comment on above: Performed By: #### D LDL, LIPID #### [facility] [address] [place], [place] [address] Octaviano Opal LDL CALC NORMAL SEE BELOW Normal [facility] Comment on above: Result Comment: <100 mg/dl OPTIMAL 100 - 129 mg/dl NEAR OR ABOVE OPTIMAL 130 - 159 mg/dl BORDERLINE HIGH 160 - 189 mg/dl HIGH >190 mg/dl VERY HIGH Performed By: #### D LDL, LIPID #### [facility] [address] [phone] Octaviano Opal Triglyceride [Mass/Vol] mg/dL Critically high <=150 [facility] Comment on above: Performed By: #### D LDL, LIPID #### [facility] [address] [phone] Octaviano Opal VLDL CALC 238.2 mg/dL Normal [facility] Comment on above: Performed By: #### D LDL, LIPID #### [facility] [address] [phone] Octaviano Opal CREATININEon 05-10-2021 Creatinine [Mass/Vol] 0.79 mg/dL Normal 0.66-1.25 [facility] Comment on above: Performed By: #### C DIMA #### [facility] [address] [place] [address] Octaviano Opal EGFR-AF FRENCH >60 Normal >=60 [facility] Comment on above: Performed By: #### C DIMA #### [facility] [address] [phone] Octaviano Opal EGFR-NON AF FRENCH >60 Normal >=60 [facility] Comment on above: Performed By: #### C DIMA #### [facility] [address] [phone] Octaviano Joseph NM STRESS/REST MULTIon 03-12 NM STRESS/REST MULTI Patient: MAHIN TAPIA Exam Date: 03/12/2021 : 1960 Gender:M Ordering : DR EMILY CADROZA . Admission #: [id number] Family : Order #: [id number] CLICK HERE TO VIEW EXAM RADIOLOGY REPORT [...] Tejeda MD on 03/15/2021 at 11:[address] [facility] MRI CSPINE WO CONon 15-20 21 [...] MARI WAYNE Date: 2021-01-29 15:41 Normal [facility] DIRECT LDLon 01-10-2021 Cholesterol in LDL [Mass/Vol] 96 mg/dL Normal [facility] Comment on above: Performed By: #### M ISC #### [facility] [address] [address] [address] Eva Silva DLDL NORMAL SEE BELOW Normal [facility] Comment on above: Result Comment: <100 mg/dl OPTIMAL 100 - 129 mg/dl NEAR OR ABOVE OPTIMAL 130 - 159 mg/dl BORDERLINE HIGH 160 - 189 mg/dl HIGH >190 mg/dl VERY HIGH Performed By: #### M ISC #### [facility] [address] [place], [place] [address] Dr. Eva Silva GLYCOHEMOGLOBIN A1Con 2020 ADA RECOMMENDATION ADA THERAPEUTIC TARGET 6.0 - 7.0 ACTION SUGGESTED > 7.[address] [facility] Comment on above: Performed By: #### A 1C #### [facility] [address] [phone] Octaviano Joseph Glucose [Mass/Vol] 249 mg/dL Normal [facility] Comment on above: Performed By: #### A 1C #### [facility] [address] [phone] Octaviano Joseph HbA1c (Bld) [Mass fraction] 10.3 % Critically high <=6.[address] [facility] Comment on above: Performed By: #### A 1C #### [facility] [address] [address] Octaviano Joseph LIPID PROFILEon 01-10-2021 CHOL-HDL RATIO NORM SEE BELOW Normal [facility] Comment on above: Result Comment: 3.3 - 4.4 LOW RISK 4.4 - 7.1 AVERAGE RISK 7.1 - 11.0 MODERATE RISK >11.0 HIGH RISK Performed By: #### M ISC #### [facility] [address] [place] [address] Dr. Eva Silva Cholesterol [Mass/Vol] 232 mg/dL Critically high <=[address] [facility] Comment on above: Performed By: #### M ISC #### [facility] [address] [place] [address] Dr. Eva Silva Cholesterol in HDL [Mass/Vol] 34 mg/dL Normal [facility] Comment on above: Performed By: #### M ISC #### [facility] [address] [address] [address] Eva Silva Cholesterol.total/Ch olesterol in HDL [Mass ratio] 6.8 {ratio} Normal [facility] Comment on above: Performed By: #### M ISC #### [facility] [address] [place], [place] [address] Dr. Eva Silva HDL NORMAL > or = 60 mg/dl - LOW CARDIOVASCULAR RISK <40 mg/dl - HIGH CARDIOVASCULAR RISK Normal [facility] Comment on above: Performed By: #### M ISC #### [facility] [address] [place] [address] Dr. Eva Silva Triglyceride [Mass/Vol] 613 mg/dL Critically high <=[address] [facility] Comment on above: Performed By: #### M ISC #### [facility] [address] [place] [address] Dr. Eva Silva PROF 14(COMP METB)on 021 Albumin [Mass/Vol] 3.6 g/dL Normal 3.5-5.0 [facility] Comment on above: Performed By: #### M ISC #### [facility] [address] [place] [address] Dr. Eva Silva Albumin/Globulin [Mass ratio] 1.1 {ratio} Normal [facility] Comment on above: Performed By: #### M ISC #### [facility] [address] [place] [address] Dr. Eva Silva ALP [Catalytic activity/Vol] 61 U/L Normal 38-[address] [facility] Comment on above: Performed By: #### M ISC #### [facility] [address] [place] [address] Dr. Eva Silva ALT [Catalytic activity/Vol] 29 U/L Normal 21-[address] [facility] Comment on above: Performed By: #### M ISC #### [facility] [address] [place] [address] Dr. Eva Silva Anion gap [Moles/Vol] 12.0 mmol/L Normal [facility] Comment on above: Performed By: #### M ISC #### [facility] [address] [place] [address] Dr. Eva Silva AST [Catalytic activity/Vol] 12 U/L Critically low 17-[address] [facility] Comment on above: Performed By: #### M ISC #### [facility] [address] [place] [address] Dr. Eva Silva Bilirubin [Mass/Vol] 0.3 mg/dL Normal 0.2-1.[address] [facility] Comment on above: Performed By: #### M ISC #### [facility] [address] [place] [address] Dr. Eva Silva Calcium [Mass/Vol] 8.7 mg/dL Normal 8.4-10.2 [facility] Comment on above: Performed By: #### M ISC #### [facility] [address] [place] [address] Dr. Eva Silva Chloride [Moles/Vol] 101 mmol/L Normal 98-[address] [facility] Comment on above: Performed By: #### M ISC #### [facility] [address] [place] [address] Dr. Eva Silva CO2 [Moles/Vol] 28.0 mmol/L Normal 22.0-30.0 [facility] Comment on above: Performed By: #### M ISC #### [facility] [address] [place] [address] Dr. Eav Silva Creatinine [Mass/Vol] 0.82 mg/dL Normal 0.66-1.[address] [facility] Comment on above: Performed By: #### M ISC #### [facility] [address] [place] [address] Dr. Eva Silva EGFR-AF FRENCH >60 Normal >=60 [facility] Comment on above: Performed By: #### M ISC #### [facility] [address] [place] [address] Dr. Eva Silva EGFR-NON AF FRENCH >60 Normal >=[address] [facility] Comment on above: Performed By: #### M ISC #### [facility] [address] [place] [address] Dr. Eva Silva Globulin (S) [Mass/Vol] 3.2 g/dL Normal [facility] Comment on above: Performed By: #### M ISC #### [facility] [address] [place] [address] Dr. Eva Silva Glucose [Mass/Vol] 260 mg/dL Critically high 74-106 [facility] Comment on above: Performed By: #### M ISC #### [facility] [address] [place] [address] Dr. Eva Silva Potassium [Moles/Vol] 5.0 mmol/L Normal 3.4-5.[address] [facility] Comment on above: Performed By: #### M ISC #### [facility] [address] [place], [place] [address] Dr. Eva Sliva Protein [Mass/Vol] 6.8 g/dL Normal 6.1-8.2 [facility] Comment on above: Performed By: #### M ISC #### [facility] [address] [place], [place] [address] Dr. Eva Silva Sodium [Moles/Vol] 136 mmol/L Critically low 137-145 [facility] Comment on above: Performed By: #### M ISC #### [facility] [address] [place] [address] [address] Eva Silva Urea nitrogen [Mass/Vol] 12.0 mg/dL Normal 9.0-20.[address] [facility] Comment on above: Performed By: #### M ISC #### [facility] [address] [place] [address] [address] Eva Silva Urea nitrogen/Creatinine [Mass ratio] 14.6 mg/mg Normal [facility] Comment on above: Performed By: #### M ISC #### [facility] [address] [place] SOFT TISSUE NECK WITH CON TRASTon 09-09-2019 Lymphocytes (Bld) [#/Vol] Probable right level-II necrotic lymph node is demonstrated. No obvious nasopharynx or oropharynx soft tissue mass is demonstrated. ENT consult is recommended. [employer] Workstation ID: [id number] [facility] EXAMINATION: CT SOFT TISSUE NECK WITH CONTRAST. [...] ear cavities and mastoids are clear. The weigher packing spaces, parotid glands and parapharyngeal spaces appear [...] lungs are clear. Osseous structures are intact. [facility] Interface, Rad In [employer] Speechq - 09/09/2019 [...] ear cavities and mastoids are clear. The weigher packing spaces, parotid glands and parapharyngeal spaces appear [...] mass is demonstrated. ENT consult is recommended. [employer] Workstation ID: [id number] [facility] CT SOFT TISSUE NECK WITH CON TRASTon [...] ear cavities and mastoids are clear. The weigher packing spaces, parotid glands and parapharyngeal spaces appear [...] mass is demonstrated. ENT consult is recommended. [employer] Workstation ID: [id number] Dictated by: KACIE SILVA on FriSep 08, 2019 4:06:01 PM EDT Transcribed by: KIP NOEL on FriSep 08, 2019 5:02:48 PM EDT Finalized by: KACIE SILVA on FriSep 09, 2019 1:02:38 AM EDT Normal [facility] Comment on above: Order Comment: Injur y/Trauma or Illness?:Illness/Other How long have you had these symptoms (acute/chronic)?:Acute Reason for exam?:R22.1 (ICD-10-CM) - Neck mass Type of Exam?:Initial Additional signs and symptoms?:n Vital Signs Date Time Vital Sign Value Performing Clinician Nory armenta 01-10-2025 10:23-0500 Body height 185.42 cm [facility] 01-10-2025 10:23-0500 Body mass index (BMI) [Ratio] 28.8 kg/m2 [facility] 01-10-2025 10:23-0500 Body weight 98.96 kg [facility] 01-10-2025 10:23-0500 Diastolic blood pressure 94 mm[Hg] [facility] 01-10-2025 10:23-0500 Heart rate 64 /min [facility] 01-10-2025 10:23-0500 Respiratory rate 12 /min [facility] 01-10-2025 10:23-0500 SaO2% (BldA) [Mass fraction] 99 % [facility] 01-10-2025 10:23-0500 Systolic blood pressure 159 mm[Hg] [facility] Encounters Encounter Date Encounter Type Care Provider Facility Start: 01-10-2025 Patient encounter status [facility] Start: 01-10-2025 End: 01-10-2025 ambulatory [facility] Work Phone: Start: 01-10-2025 End: 01-10-2025 Patient encounter procedure Replaced By [facility] Work Phone: Start: 01-30-2023 ambulatory Facility:[facility] [...] Start: 01-29-2021 End: 01-30-[address] EMILY CARDOAZ Facility:[facility] Start: 01-10-2021 End: 01-11-[address] EMILY CARDOZA Facility:[facility] Start: 09-08-2019 End: 09-09-2019 Patient encounter procedure CADEN CHARLES [facility] Start: 09-08-2019 End: 09-08-2019 Subsequent hospital visit by physician Caden Charles Work Phone: [facility] CT Scan Comment on above: Neck mass Procedures Date Procedure Procedure Detail Performing Clinician Start: 09-08-2019 CT of soft tissues o f neck with contrast Caden Charles Work Phone: Plan of Treatment Date Care Activity Detail Author Start: 07-18-2019 Influenza vaccination given SEQUENTIAL INFLUENZA VACCINE (#1) [facility] Start: 2011 Administration of herpes zoster vaccine Zoster Vaccines (1 of 2) [facility] Start: 1964 History and physical examination, annual for health maintenance Wellness Visit [facility] Start: 1961 Hepatitis C antibody, confirmatory test HEPATITIS C SCREENING [facility] Start: 1961 Prostate specific antigen measurement PSA Level [facility] Start: 1961 Tetanus vaccination TETANUS EVERY 10 YR [facility] Comprehensive metabo lic 2000 panel - Serum or Plasma [facility] EKG 12 channel panel [facility] Holter monitor study [facility] Payers Date Payer Category Payer Private Health Insurance [employer] xxxxxxxxx 2013-Present xxxxxxxxx [id number] 1961 Unknown [id number] [id number]. 2.903 1961 Unknown [id number] 2.840.1.341956.3.579. 2.593 1961 Unknown [id number] 2.840.1.289890.3.579. 2.593 1961 Unknown [id number] 2.16.840.1.684513.3.579. 2.593 1961 Unknown [id number] 2.16.840.1.147443.3.579. 2.593 1961 Unknown [id number] 2.16.840.1.071948.3.579. 2.593 1961 Unknown [id number] 2.16.840.1.708102.3.579. 2.593 1961 Unknown [id number] 2.16.840.1.577353.3.579. 2.593 1961 Unknown [id number] 2.16.840.1.455990.3.579. 2.593 1961 Unknown [id number] 2.16.840.1.350595.3.579. 2.593 1961 Unknown [id number] 2.16.840.1.043996.3.579. 2.593 1961 Unknown [id number] 2.16.840.1.466217.3.579. 2.727 1959 Private Health Insurance [id number] 1959 Self-pay Unknown [id number] 2.16.840.1.405369.3.579. 2.593 Unknown [employer] [id number] Social History Date Type Detail Facility [facility] At Not on file [facility] Start: 01-10-2025 [facility] Start: 01-10-2025 Sex Male (finding) [facility] Start: 1960 Sex Assigned At Male [facility] Clinical Note 08-21-2021 Note Date & [...] authenticated by: MARI WAYNE Date: 2021-08-21 06:[address] [facility] Progress note 07-12-2021 Note Date & Type Note Facility 07-12-2021 Note HNO ID: [id number] Author: Suzanne Boyle MD Service: ? Author [...] plan as documented in the resident?s note. [facility] Progress note 07-12-2021 Note Date & Type Note Facility 07-12-2021 Note HNO ID: [id number] Author: Reese Winchester MD Service: ? Author [...] Reese Winchester MD General Surgery, PGY-5 Pager: [phone] [facility] Clinical Note 05-10-2021 Note Date & [...] authenticated by: SAMI TEJEDA Date: 2021-05-10 11:[address] 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 Expl anation Advance Directives and Livin g Will 09/08/2019 3:31 PM Advance Directive Response Recorded Date/ Time Advance Directives No December 11:34am Reason for Referral Status Reason Specialty Diagnoses / Procedures Referred By Contact Referred To Contact Pending Review Radiology Diagnoses Neck mass Procedures CT Soft Tissue Neck With Contrast Caden Charles, DDS [address] [place] [address] Assessments Diagnosis Neck mass Swelling, mass, or [...] section and content) DATE CREATED AUTHOR 09/10/2019 [facility] DATE CREATED AUTHOR AUTHOR'S ORGANIZ ATION 12/27/2021 [facility] DATE CREATED AUTHOR AUTHOR'S ORGANIZ ATION 01/07/2022 [facility] DATE CREATED AUTHOR AUTHOR'S ORGANIZ ATION 08/23/2023 [facility] Reason for Visit (unrecogniz ed section and content) Status Reason Specialty Diagnoses / Procedures Referred By Contact Referred To Contact Pending Review Radiology Diagnoses Neck mass Procedures CT Soft Tissue Neck With Contrast Caden Charles, DDS [address] [place] [address] Care Teams (unrecognized sec tion and content) [...] BE BASED ON THE PRIMARY CLINICAL RECORDS. [facility] [employer]. provides no warranty or guarantee of the accuracy or completeness of information in this document.
--- NOTE | 2025-02-01 07:35 | NM_ITS ---
Patient Name: NGOZI WHITTINGTON MR#: [id number] : 1960 Exam Date: 02/01/2025 Ordering Doctor: DR Nai Fung M.D. RADIOLOGY REPORT PROCEDURE: NM LUCERO PERF SPECT REST STR COMPARISON: None. INDICATIONS: CHEST PAIN TECHNIQUE: Exam Description: Stress/Rest one day protocol gated SPECT Rest Imagin.1 mCi Tc-99m Cardiolite IV on 02/01/2025 Stress Imaging 30.3 mCi Tc-99m Cardiolite IV on 02/01/2025 Exercise Protocol: 0.4 mg Lexiscan given IV Heart Rate (bpm): Rest: 64 Max: 126 PMHR: 80 Blood Pressure: Rest: 137/106 Max: 156/90 Symptoms: Rest and peak stress ECG findings were pending and the exercise portion of the study was pending per attending physician [facility] . For more details, please see separate cardiac stress test report. FINDINGS: QUALITY OF STUDY: Good PERFUSION DEFECT: None WALL MOTION: Normal wall motion LV SIZE: 101 mL. TID / TCD: 0.8 LVEF: Calculated EF 65%. SUMMARY: Myocardial perfusion imaging study is normal CONCLUSION: 1. Myocardial perfusion is normal with soft tissue attenuation 2. Global left ventricular systolic function is normal 3. No evidence of transient ischemic dilatation Dictated by: Gabriel Melissa M.D. on 02/02/2025 at 15:05 Approved by: Gabriel Melissa M.D. on 02/02/2025 at 15:07
[2025-02-01] MEDS: REGADENOSON 0.4 MG/5 ML SYRINGE IV (09:53)
== END 2025-02-01 07:27 | disposition home or self-care (01) ==
LOC: NM 07:26
PROVIDERS: PCP Family Medicine; Visit Provider Family Medicine
DX: R07.9 Chest pain, unspecified (principal)
CPT/HCPCS: 78452; 93017; A9500; J2785

== ENCOUNTER 2025-11-03 08:51 | Outpatient (OUT) | payer OTHER, SELFPAY ==
--- OUTSIDE RECORDS SUMMARY | 2025-10-27 10:30 | XMS_ITS | Encounter Summary ---
Author Organization [facility] Address [address] [place] [address] Care Team Providers Care [employer] Lab[employer] Name Role Phone Unavailable Primary Care Provider Unavailabl e Reason for Visit * ReasonCommentsDM Foot Care Encounter Details DateTypeDepartmentCare Team (Latest Contact Info)Lvjjcpomzvu79/11/2025 10:30 AM ESTOffice Visit [facility] [address] [facility] [address] [place] [id number] Vijay Miguel DPM [address] [facility] [address] [place] [address] Xerosis cutis (Primary Dx); Diabetes mellitus due to underlying condition with diabetic polyneuropathy, without long-term current use of insulin (HCC); Pain due to onychomycosis of toenails of both feet Social History Tobacco UseTypesPacks/DayYears UsedDateSmoking Tobacco: Unknown Tobacco Cessation:Counseling Given: Yes Sex and Gender InformationValueDate RecordedSex Assigned at BirthNot on file Legal MlgCvre8201/29/2023 7:28 PM EDTGender IdentityNot on fileSexual Orientation Not on filedocumented as of this encounter Last Filed Vital Signs Vital SignReadingTime TakenCommentsBlood Pressure--Pulse--Temperature-- Respiratory Iopu575212/28/2024 11:11 AM ESTOxygen Saturation--Inhaled Oxygen Concentration--Ozhhse670 kg (225 lb)10/27/2025 11:11 AM XBDHjqxrk235.9 cm (6') 10/27/2025 11:11 AM ESTBody Mass Index30.5210/27/2025 11:11 AM ESTdocumented in this encounter Progress Notes * Vijay Miguel DPM - 10/27/2025 10:30 AM EST Patient: Mahin Tapia : 1960 PCP: No primary care provider on file. SUBJECTIVE This is a 65 y.o. male that presents today with a CC of elongated, thick nails. Pt states nails have been elongated and thick for many years and cause pain with ambulation in shoegear. Pt has tried previous treatment with minimal relief. Pt presents today for nail care and treatment. Patient is DM2 with peripheral neuropathy Pt also presents today with secondary complaints of dry scaly skin to feet. Pt states that they have not been using OTC creams and lotions with minimal relief. Allergies: Allergies[1] Past Medical History: Medical History[2] Medications: Current Medications[3] Social History: Social History Socioeconomic History Marital status: Unmarried Spouse name: Not on file Number of children: Not on file Years of education: Not on file Highest education level: Not on file Occupational History Not on file Tobacco Use Smoking status: Unknown Smokeless tobacco: Not on file Substance and Sexual Activity Alcohol use: Not on file Drug use: Not on file Sexual activity: Not on file Other Topics Concern Not on file Social History Narrative Not on file Social Drivers of Health Financial Resource Strain: Not on file Food Insecurity: Not on file Transportation Needs: Not on file Physical Activity: Not on file Stress: Not on file Social Connections: Not on file Intimate Partner Violence: Not on file Housing Stability: Not on file ROS: Gastrointestinal: denies abdominal pain, ulcers, or changes in appetite or bowel habits Musculoskeletal: Positive generalized arthritis to joints and denies loss of strength. Cardiovascular: denies CP, palpitations, irregular rhythms OBJECTIVE LE EXAM: DERM: Elongated thick yellow crumbly nails digits 1 through 10. diminishedhair growth with thin shiny atrophic skin bilaterally. Dry and scaly skin to bilateral heels VASC: positive DP and PT pedal pulses NEURO: 5.07 [place] monofilament test diminished to digits and forefoot bilaterally 125Hz tuning fork diminished to 1st MPJ bilaterally ORTHO: Positive pain on palpation to toenails of the left 1,2,3,4,5 toes and right 1,2,3,4,5 toes ASSESSMENT 1. Xerosis cutis 2. Diabetes mellitus due to underlying condition with diabetic polyneuropathy, without long-term current use of insulin (HCC) 3. Pain due to onychomycosis of toenails of both feet PLAN Discussed proper foot care with patient today. Debride nails in length and thickness digits 1 through 10 Patient educated today on proper diabetic foot care including monitoring feet daily for any signs of infection openings in the skin or irregularities to both feet. Patient had a diabetic neurologicalexam today to both their feet and discussed proper shoe gear. Patient education on condition and treatment of condition. Discussed application of hydrating cream to feet twice daily and to not place between toes and to apply prior to bed in evenings and to observe for any redness to feet or red streaks or drainage to feet. Patient to consider [id number] treatments for medication or use of urea cream and prescription today was offered for Lac-Hydrin cream. Vijay Miguel DPM [1] Not on File [2] Past Medical History: Diagnosis Date Diabetes ([facility]) [3] No current outpatient medications on file. documented in this encounter Plan of Treatment DateTypeDepartmentCare Team (Latest Contact Info)Shsowczmich47/26/2026 11:30 AM ESTOffice Visit [facility] [address] [facility] [address] [place] [address] Vijay Miguel DPM [address] [facility] [address] [place] [address] documented as of this encounter Visit Diagnoses Diagnosis Xerosis cutis- Primary Other specified disease of sebaceous glands Diabetes mellitus due to underlying condition with diabetic polyneuropathy, without long-term current use of insulin ([facility]) Pain due to onychomycosis of toenails of both feet documented in this encounter
--- OUTSIDE RECORDS SUMMARY | 2025-10-28 09:45 | XMS_ITS | Encounter Summary ---
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 A complete ophthalmic exam was performed and it was determined that the cataracts were a primary source of vision decline, affecting activities of daily living, nec essitating removal. Limited vision post-surgery may occur with pre-existing conditions affecting other areas of the eye or the brain was explained and the patient displayed an understanding. The overall objective is to improve ADLs, not eliminate glasses or restore vision to 20/20. Tests were reviewed - the different lens options were explained including the jxx-vh-nxspai fees for any upgrades. Intraocular lens (IOL) selection may be altered either prior to or during the procedure based on the doctor's discretion including reverting to a traditional intraocular lens (IOL). They understood that there will exist the potential of glasses prescription need post surgery for near, distance or poss ibly both. The patient stated a full understanding and a desire to proceed with the procedure. The patient received cataract measurements and had any additional questions answered. - A complete exam was performed including a physical exam: General: AAOx3 and NAD, Lungs: Clear, Heart: RRR, Abdomen: S/NT/ND, Extremities: no pitting edema. Diabetes Mellitus with signs of diabetic retinopathy on dilated retinal examination today OU: Discussed the pathophysiology of diabetes and its effect on the eye. Stressed the importance of strong glucose control. Advised of importance of at least yearly dilated examinations, but to contact us immed iately for any problems or concerns. Continue aggressive control of the blood sugar, blood pressureand cholesterol. [1] Allergies Allergen Reactions Amoxicillin Itching [2] Past Medical History: Diagnosis Date Diabetes (HCC) documented in this encounter Plan of Treatment DateTypeDepartmentCare Team (Latest Contact Info)Wygdbgyvfue22/26/2026 11:30 AM ESTOffice Visit [facility] [address] [address] Vijay Mgiuel DPM [address] [facility] [address] [place] [address] documented as of this encounter Procedures Procedure NamePriorityDate/TimeAssociated DiagnosisCommentsIOL BIOMETRY - OU - BOTH GGMEMnswnlh97/12/2025 10:36 AM EST Cortical age-related cataract of both eyes OCT, RETINA - OU - BOTH PILIFeaaqbc66/12/2025 10:35 AM EST 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 Left Eye Axial length was 23.54. Authorizing ProviderResult TypeResult StatusRachel Avery MDUNIVERSITY OF [facility] ULTRASOUND Final Result * OCT, Retina - OU - Both Eyes (10/28/2025 10:35 AM EST)Anatomical Region LateralityModalityHeadOptical Coherence Tomography Narrative 10/28/2025 10:35 AM EST Right Eye Quality was good. Scan locations included subfoveal, juxtafoveal, extrafoveal. Progression has no prior data. Findings include cystoid macular edema. Left Eye Quality was good. Scan locations included subfoveal, juxtafoveal, extrafoveal. Progression has no prior data. Notes . 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
--- OUTSIDE RECORDS SUMMARY | 2025-10-31 06:18 | XMS_ITS | Continuity of Care Document ---
Author Organization [facility] Address [address] [place] [address] Phone Care Team Providers Care Doctor Of Osteopathy Name Role Phone Nai Fung MD Primary Care Provider Nai Fung MD Attending Provider Care Teams Patient Care Team Team Status: Active Member Role/Relationship Status Dates Nai Fung MD Primary Care Provider Active Patient Care Team Team Status: Inactive Member Role/Relationship Status Dates Nai Fung MD Primary Care Provider Active Start: October 31, 2025 End: October 31, 2025Nai Fung MDAttending ProviderActiveStart: October 31, 2025 End: October 31, 2025 Chief Complaint and Reason for Visit Chief Complaint Admit Date check up before the end of the year Dece mber 2024 10:23am Reason for Visit Admit Date Exposure to body fluid October 31 10:23am Type 2 diabetes mellitus with hyperglyce kelli October 31, 2025 10:23am Allergies, Adverse Reactions, Alerts Allergen Type Severity Reaction Last Updated Verified Status amoxicillin Allergy Unknown Itching October 31, 2025 10:41am Yes Active Social History Smoking Status Status Start Date End Date Date of Observa tion Ex-smoker (finding) January 10, 2025 10:25am Observation Status Observation Response Date of Response Legal Sex Male (finding) Sex Assigned At BirthMaleJuly 1959 Problems Active Problems Problem Diagnosis/Recorded Date Onset Date Stat us Exposure to body fluid October 31, 2025 11:09am Unk nown Active Type 2 diabetes mellitus wit h hyperglycemia January 10, 2025 10:42am Unknown Active Sinusitis, acute maxillary January 10, 2025 11:11am Unknown Active Benign essential HTN January 10, 2025 11:11am Unkno wn Active Erectile disorder January 10, 2025 11:11am Unknown Active Wellness examination January 10, 2025 10:42am Unkno wn Active Hyperlipidemia January 10, 2025 10:24am Unknown Active Elevated triglycerides with high cholesterol March 23, 2025 1:18pm Unknown Active Chest pain January 10, 2025 10:47am Unknown Active Medications Medication Status Dose Units Route Directions Qty Days Refills S tart Date Stop Date End Date Reason(s) Instructions Adherence Fenofibrate Nanocrystallized 145 mg tablet Discontinued 145 MG PO Daily 90 0Mar2024 12:00amApril 2024 10:09amSemaglutide (Ozempic) 0.25 mg or 0.5 mg (2 mg/3 mL) pen injectorDiscontinued0.25MGSUBCUTevery 2024 12:00amMarch 2024 12:39pmfor 4 weeksGlyburide 5 mg ujuyzbQopzdb0SHRG Hitfd452Fiwnmdnd 2024 11:05amComplies with drug therapyAzithromycin 250 mg xhlyduJlinmjxglieo1II.CGJRIGZ76Nbmjcrzv 2024 12:00amMarch 2024 12:39pmFor 250 mg dose pack: take 500 mg today (day 1), then 250 mg for 4 days (days 2-5) POGlyburide 5 mg cbhcrlMzhkgcqogdrr2EMZGBiusj747Irhjq 2024 11:00pmApril 2024 10:02amMetformin 500 mg ojcuhjEjgmdfgxaqyg3WYWNYIapjc March 13, 2025 11:00pmApril 2024 9:48amFreeTextSi tablet with a meal Orally Once a day; Note: Source Status: Taking; Provider: Antonieta Agrawal ( )Atorvastatin 40 mg vpgaxfVtrywzxbdiie77SZHBKoiseEbbpb 2024 11:00pmApril 2024 9:49amFreeTextSig: TAKE 1 TABLET BY MOUTH DAILY AT NIGHT Oral; Note: Source Status: Taking; Refills: 3; Qty: 90 Unspecified; Provider: SANJUANA DORADOGlyburide 5 mg blrjuhLojsalyfhonw3FZSULmytc137Olvva 2024 10:02am March 15, 2025 10:09amFenofibrate Nanocrystallized 145 mg ifaurhSidsue909ILFM Pclna288Ksokb 2024 10:07amComplies with drug therapyGlyburide 5 mg tablet Fwhefbayvcht8MGRBAthdo448Lfyve 2024 10:08amDecember 2024 11:05am Tadalafil (Cialis) 20 mg mdrvlxTcwuccedtcjb57CQUAOdeqg as needed for sexual wbkntbjn842Amptl 2024 11:00pmDecember 2024 11:13amadminister approximately 30min before sexual activity; do not use more than 1 dose per 24hrs Vital Signs Vital Reading Result Reference Range Collection Date/Time Height 71 [in_i] October 31, 2025 10:68nhBlcppx764.41 kgDeceer 2024 10:39amHeart Rate 82 /lwn68-681Ryzyejmc 15th, 2025 10:49amBP Rtvhqmuy272 mm[Hg]100-140Dece2024 10:49amBP Cdhxlubyg68 mm[Hg]60-100Deceer 2024 10:49amBMI (Body Mass Index)31.8 kg/n3Yqqtvhir 2024 10:39am Advance Directives Advance Directive Response Recorded Date/ Time Advance Directives No December 11:34am Insurance Providers Guarantor Mahin Tapia Address [address] [address]Yuyghsa Info.Home Phone: Coverage Status Update:2025 Payer Group Member ID Coverage Type Subscriber Relationship to Subscriber Effective Date Expiration Date [employer] Id: [id number] Missler Id: [id number] [address] Home Phone: Email: [id number] Encounters Encounter Location(s) Arrival/Admit Date Discharge/Departure Date Discharge/Departure Disposition Provider(s) Departed Physician/ Provider Office Visit -[facility] October 31, 2025 10:23am October 31, 2025 11:17am Discharged to home care or self care (routine discharge) Nai Fung MD Recent Diagnosis Onset Date Admit Date Exposure to body fluid Unknown October 31, 2025 10:23am Type 2 diabetes mellitus with hyperglycemia Unkn own October 31, 2025 10:23am Assessments Diagnosis Onset Date Resolution Status Admit Date Exposure to body fluid acuteDecemb2024 10:23amType 2 diabetes mellitus with hyperglycemiaacute October 31, 2025 10:23am Plan of Treatment Future Tests Future scheduled test information is unavailable Pending Tests Pending diagnostic test information is unavailable Future Visits Future appointment information is unavailable Future Procedures Procedure Name Ordered Date Scheduled Date A1C with Estimated Average Glu October 31 11:08am HIV 1/O/2 Antigen/AntibodyDece2024 11:08am Future Medications Future medication information is unavailable Patient Instructions Patient instructions are unavailable
--- OUTSIDE RECORDS SUMMARY | 2025-11-03 08:59 | XMS_ITS | Clinical Summary ---
Author Organization [facility] Address [address] [place] [address] Care Team Providers Care Prospect Manager Name Role Phone Nai Fung MD Primary Care Provider [phone] Allergies Active AllergyReactionsCriticalityNoted CxjtNawasfdoBudfbqgmjgnDbklcqv72/25/2019 Medications MedicationSigDispense QuantityRefillsLast FilledStart DateEnd DateStatus atorvastatin (Lipitor) 40 MG tablet 1 (one) time each day at the same timeActive azithromycin (Zithromax) 250 MG tablet TAKE 2 TABLETS BY MOUTH TODAY, THEN TAKE 1 TABLET DAILY FOR 4 DAYS DIRECTED 5Active fenofibrate (Tricor) 145 MG tablet Take 145 mg by mouth DailyActive tadalafil (Cialis) 20 MG tablet 5Active Active Problems No known active problems Encounters DateTypeDepartmentCare VzyqRkuriwoxqac83/12/2025 9:45 AM ESTOffice Visit [facility] [address] [place] [address] Rachel Avery MD Cortical age-related cataract of both eyes (Primary Dx); 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 associated with type 2 diabetes mellitus (HCC)10/28/20250677Ytigye92/11/2025 10:30 AM ESTOffice Visit [facility] 112 [facility] [address] [place] [address] Vijay Miguel DPM Xerosis cutis (Primary Dx); Diabetes mellitus due to underlying condition with diabetic polyneuropathy, without long-term current use of insulin (HCC); Pain due to onychomycosis of toenails of both feet10/27/2025bstract [facility] [address] [facility] [address] [place] [address] Vijay Miguel DPM 10/27/2025Travelfrom Last 3 Months Social History Tobacco UseTypesPacks/DayYears UsedDateSmoking Tobacco: Unknown Tobacco Cessation:Counseling Given: Yes Sex and Gender InformationValueDate RecordedSex Assigned at BirthNot on file Legal FxgAgnp6401/29/2023 7:28 PM EDTGender IdentityNot on fileSexual Orientation Not on file Last Filed Vital Signs Vital SignReadingTime TakenCommentsBlood Ekzithfr351/8108/ 12:00 PM EDT Pulse--Temperature--Respiratory Qyde111612/28/2024 11:11 AM ESTOxygen Saturation-- Inhaled Oxygen Concentration--Cjxdxe987 kg (225 lb)10/27/2025 11:11 AM ESTHeight 182.9 cm (6')10/27/2025 11:11 AM ESTBody Mass Index30.5210/27/2025 11:11 AM EST Plan of Treatment DateTypeDepartmentCare Team (Latest Contact Info)Lyapysnnrcu59/26/2026 11:30 AM ESTOffice Visit [facility] 112 [facility] [address] [place] [address] Vijay Miguel DPM 3006 [facility] [address] [place] [address] Health MaintenanceDue DateLast DoneCommentsCT Koubauujqiwh1961olonoscopy 1961olorectal Cancer Gleacvztu1961FIT-DNA1961FIT1961 FOBT1960 0043Oycvfrdfqmzmg1961OVID-19 Vaccine ( season) /, 02/15/2021Influenza Vaccine (#1)2025Pneumococcal Vaccine: Pediatrics (0 to 5 Years) and At-Risk Patients (6 to 64 Years)Aged Out No longer eligible based on patient's age to complete this topic Procedures Procedure NamePriorityDate/TimeAssociated DiagnosisCommentsIOL BIOMETRY - OU - BOTH FFFVQzhsfur71/12/2025 10:36 AM EST Cortical age-related cataract of both eyes OCT, RETINA - OU - BOTH ZJIKCsmbuyl52/12/2025 10:35 AM EST 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 Left Eye Axial length was 23.54. Authorizing ProviderResult TypeResult StatusRachel Avery MDMOBER[facility] ULTRASOUND Final Result * OCT, Retina - [...] 2 diabetes mellitus Authorizing ProviderResult TypeResult StatusRachel SOUSA TOMOGRAPHY Final Result from Last 3 Months Insurance * Guarantor: Mahin Tapia AAccount TypeRelation to PatientDate of BirthPhone Billing AddressPersonal/PvmcmxThqi1960 [id number] [address] Care Teams Team MemberRelationshipSpecialtyStart DateEnd Date Nai Fung MD [address] [place] [address] [facility] Hvmsmyec32/12/25
--- OUTSIDE RECORDS SUMMARY | 2025-11-03 08:59 | XMS_ITS | Clinical Summary ---
Author Organization [facility] Address [id number] [place] [address] Care Team Providers Care Bundler Seasonal Greenery Name Role Phone Unavailable Primary Care Provider Unavailabl e Social History Tobacco UseTypesPacks/DayYears UsedDateSmoking Tobacco: Never AssessedChildcare AnswerDate SmkjlcweHyptdkrefZbqwwfm34/12/2019EmploymentAnswerDate Recorded CntxvmnhodIbozabp07/12/2019Sex and Gender InformationValueDate RecordedSex Assigned at BirthNot on fileLegal QzoXasb2306/22/2015 11:30 AM EDTGender Identity Not on fileSexual OrientationNot on file Plan of Treatment Not on file Medical Devices Not on file
--- OUTSIDE RECORDS SUMMARY | 2025-11-03 08:59 | XMS_ITS | Clinical Summary ---
Author Organization [facility] Address [address] [facility], [address] [place] [address] Care Team Providers Care Assistant Vice President Name Role Phone Emily Cardoza MD Primary Care Provider Unavailab le Allergies No known active allergies Medications MedicationSigDispense QuantityRefillsLast FilledStart DateEnd DateStatus cephALEXin (KEFLEX) 500 MG capsule Take 500 mg by mouth 4 times dailyActive METFORMIN HCL PO Take by mouthActive PRAVASTATIN SODIUM PO Take by mouthActive Social History Tobacco UseTypesPacks/DayYears UsedDateSmoking Tobacco: NeverSex and Gender InformationValueDate RecordedSex Assigned at BirthNot on fileLegal SexMale 08/14/2015 3:24 PM EDTGender IdentityNot on fileSexual OrientationNot on file Last Filed Vital Signs Vital SignReadingTime TakenCommentsBlood Pnhrublc452/8110 2:53 PM EDT Thxdd121409/11/2015 2:53 PM EDTTemperature--Respiratory Rate--Oxygen Saturation-- Inhaled Oxygen Concentration--Ifdjio988.9 kg (240 lb)09/11/2015 2:53 PM EDT Tsvftw886.9 cm (6')09/11/2015 2:53 PM EDTBody Mass Index32.5510 2:53 PM EDT Plan of Treatment Not on file Insurance [address] [place] [address] Care Teams Team MemberRelationshipSpecialtyStart DateEnd Emily Cardoza MD [address] [facility] [place] [address] [facility]
--- OUTSIDE RECORDS SUMMARY | 2025-11-03 08:59 | XMS_ITS | Clinical Summary ---
Author Organization [facility] Address [address] [facility] [place] [address] Care Team Providers Care Clinical Data Associate Name Role Phone Emily CardozaLuh Primary Care Provider [phone] Source Comments The following information is NOT included in Care Everywhere downloads:Psychiatric notes, ECG results, Cardiac Rehab notes, Pulmonary Function notes, data from [employer] (includes but not limited toPregnancy data,audiograms, eye exams, pre-surgical evaluation notes, well-child exam data).[facility] Allergies No known active allergies Medications MedicationSigDispense QuantityRefillsLast FilledStart DateEnd DateStatus metformin (GLUCOPHAGE) 500 MG tablet Indications:Spindle cell carcinoma (HCC),Malignant melanoma of right foot (HCC), Type 2 diabetes mellitus without complicationTake 500 mg by mouth 2 times daily (with meals).Active bacitracin 500 UNIT/GM ointment Apply topically daily. Apply thin layer to affected area. 1 Tube 10001/22/2016Active Bismuth Tribromoph-Petrolatum (XEROFORM PETROLAT GAUZE 5 X9 ) MISC Apply 1 Each externally daily. 100 Each Active Elastic Bandages & Supports (LUIS ALBERTO BANDAGE) MISC 1 Package daily. 100 Each Active Gauze Pads & Dressings (GAUZE DRESSING) 4 X4 PADS 1 Package daily. 100 Each Active Gauze Pads & Dressings (KERLIX GAUZE ROLL LARGE) MISC 1 Each daily. 100 Each Active Wound Dressings (ADAPTIC NON-ADHERING DRESSING) PADS Apply 1 Package externally daily. 100 Each Active COLCHICINE ORAL Take by mouth.Active Atorvastatin Calcium (LIPITOR ORAL) Take by mouth daily.Active docusate sodium (COLACE) 100 MG capsule Take 1 Capsule by mouth 2 times daily. 60 Capsule 004/13/2016Active AMOXICILLIN ORAL Take by mouth.Active silver sulfadiazine (SILVADENE) 1 % cream Indications:Open wound of right foot, subsequent encounterApply topically daily. Apply thin layer to affected area. 1 Tube Active Active Problems ProblemNoted DateDiagnosed DateMalignant melanoma of right foot01/02/2016Type 2 diabetes mellitus without pifofxzwuvjd95/16/2016 Family History Medical HistoryRelationNameCommentsmultiple myloma [Other]MotherCancerPaternal Grandfatherposs liverRelationNameStatusCommentsMotherPaternal Grandfather Social History Tobacco UseTypesPacks/DayYears UsedDateSmoking Tobacco: ZpjfzyXntbcdgeee70 Smokeless Tobacco: Never Tobacco Cessation:Counseling Given: No Comments:1979 quit smoking Alcohol UseStandard Drinks/WeekCommentsYes0 (1 standard drink = 0.6 oz pure alcohol)few times a month - beerSubstance UseTypesUse/WeekCommentsNoSex and Gender InformationValueDate RecordedSex Assigned at BirthNot on fileLegal Sex Male12/08/2015 11:20 AM ESTGender IdentityNot on fileSexual OrientationNot on file Last Filed Vital Signs Vital SignReadingTime TakenCommentsBlood Pbmhmtzt034/9204/02/2016 11:10 AM EDT Kvpzw237904/02/2016 11:10 AM SFFMeufczdbmrf16.4 ??C (97.5 ??F)04/02/2016 11:10 AM EDTRespiratory Tajl486304/02/2016 11:10 AM EDTOxygen Lnjcqzeveq281%02/28/2016 3:08 PM EDTInhaled Oxygen Concentration--Trilnh493.2 kg (232 lb)02/28/2016 8:07 AM KWGAbkerv939.4 cm (6' 1 )02/28/2016 8:07 AM EDTBody Mass Index30.61002/28/2016 8:07 AM EDT Plan of Treatment Health MaintenanceDue DateLast HyghMbszkdsvZffmmbmdcfo1961Dermatology Visit1962HIV Test1976Hepatitis C Utfqcuqn50/08/1979Tdap Booster 1979Hepatitis A (HAV) Vaccine (optional start 19+ years)1980CRC Yqpxwtiyf70/08/2006Cologuard (Stool DNA)2006FIT2006Pneumococcal Vaccine(s) (50+ yrs) (1 of 1 - PCV)2011Shingles (RZV) Vaccine (1 of 2) 2011Hepatitis B (HBV) Vaccine (optional start 60+ years)2021 Wjqpwogtumy38/25/COVID-19 Vaccine (1 - 2024- season)2025 Influenza Vaccine (#1)2025RSV vaccine (adult) (1 - 1-dose 75+ series) 2036 Insurance Care Teams Team MemberRelationshipSpecialtyStart DateEnd Date Emily Cardoza PCP - GeneralFamily Medicine12/08/15
--- OUTSIDE RECORDS SUMMARY | 2025-11-03 08:59 | XMS_ITS | Encounter Summary ---
Author Organization [facility] Address [address] [place] [address] Care Team Providers Care Contingents Supervisor Name Role Phone Nai Fung MD Primary Care Provider [phone] Encounter Details DateTypeDepartmentCare Team (Latest Contact Info)Aprmtdcuflw99/11/2025bstract [facility] [address] [place] [address] Vijay Miguel DPM [address] [address] Social History Tobacco UseTypesPacks/DayYears UsedDateSmoking Tobacco: UnknownSex and Gender InformationValueDate RecordedSex Assigned at BirthNot on fileLegal SexMale 01/29/2023 7:28 PM EDTGender IdentityNot on fileSexual OrientationNot on file documented as of this encounter Plan of Treatment DateTypeDepartmentCare Team (Latest Contact Info)Rjnbzqbishc84/26/2026 11:30 AM ESTOffice Visit [facility] [address] [place] [address] Vijay Miguel DPM [address] [address] documented as of this encounter Visit Diagnoses Not on filedocumented in this encounter Care Teams Team MemberRelationshipSpecialtyStart DateEnd Date Nai Fung MD [address] [facility] [place] [address] PCP - GeneralFamily Imrnsfvp12/12/25documented as of this encounter
--- OUTSIDE RECORDS SUMMARY | 2025-11-03 08:59 | XMS_ITS | Clinical Summary ---
Author Organization [facility] Address [address] [place] [address] Phone Care Team Providers Care Deer Farmer Name Role Phone Unavailable Primary Care Provider Unavailabl e Social History Tobacco UseTypesPacks/DayYears UsedDateSmoking Tobacco: Never AssessedSex and Gender InformationValueDate RecordedSex Assigned at BirthNot on fileLegal Sex Male10/12/2022 3:25 PM ESTGender IdentityNot on fileSexual OrientationNot on file Plan of Treatment Not on file
--- OUTSIDE RECORDS SUMMARY | 2025-11-03 08:59 | XMS_ITS | Clinical Summary ---
Author Organization [facility] Address [address] [place] [address] Care Team Providers Care Science Faculty Member Name Role Phone Emily Cardoza MD Primary Care Provider Social History Tobacco UseTypesPacks/DayYears UsedDateSmoking Tobacco: Never AssessedSex and Gender InformationValueDate RecordedSex Assigned at BirthNot on fileLegal Sex Male09/08/2019 3:17 PM EDTGender IdentityNot on fileSexual OrientationNot on file Plan of Treatment Health MaintenanceDue DateLast DoneCommentsCT Jrxgssfrempl1961Colonoscopy 1Colorectal Cancer Screening/Luwdeneqyw1961Fecal DNA1961 Fecal occult blood test (FOBT,FIT)1PSA Level1961Wellness Visit 1964Depression Screening/Follow-Up (PHQ-2/9)1973HIV Screening 1976Hepatitis C Bfjdqooyf37/08/1979Tetanus/Diphtheria/Pertussis (1 - Tdap) 1980Pneumococcal Vaccine: 50+ Years (1 of 1 - PCV)2011Zoster Vaccines (1 of 2)2011COVID-19 Vaccine (1 - 2024-26 season)2025 Influenza Vaccine (#1)2025RSV Vaccines (1 - 1-dose 75+ series)2036 HIB VaccinesAged OutNo longer eligible based on patient's age to complete this topicHPV VaccinesAged OutNo longer eligible based on patient's age to complete this topicHepatitis A VaccinesAged OutNo longer eligible based on patient's age to complete this topicHepatitis B VaccinesAged OutNo longer eligible based on patient's age to complete this topicIPV VaccinesAged OutNo longer eligible based on patient's age to complete this topicMeningococcal ACWY VaccineAged OutNo longer eligible based on patient's age to complete this topicMeningococcal B VaccineAged OutNo longer eligible based on patient's age to complete this topic Rotavirus VaccinesAged OutNo longer eligible based on patient's age to complete this topic Insurance * Guarantor: Mahin TapiaAccount TypeRelation to PatientDate of BirthPhone Billing AddressPersonal/EraysdQhpq1960 [id number] [address] Care Teams Team MemberRelationshipSpecialtyStart DateEnd Emily Cardoza MD [address] [place] [id number] [facility] Nxsvjiln39[facility]19
--- OUTSIDE RECORDS SUMMARY | 2025-11-03 08:59 | XMS_ITS | Encounter Summary ---
Author Organization [facility] Address [address] [place] [address] Care Team Providers Care Stage Rigger Name Role Phone Unavailable Primary Care Provider Unavailabl e Encounter Details DateTypeDepartmentCare Team (Latest Contact Info)Vztrphxkino01/11/2025Travel Social History Tobacco UseTypesPacks/DayYears UsedDateSmoking Tobacco: UnknownSex and Gender InformationValueDate RecordedSex Assigned at BirthNot on fileLegal SexMale 01/29/2023 7:28 PM EDTGender IdentityNot on fileSexual OrientationNot on file documented as of this encounter Plan of Treatment DateTypeDepartmentCare Team (Latest Contact Info)Oobkcblmsgz81/26/2026 11:30 AM ESTOffice Visit [facility] [address] [facility] [address] [place] [address] Vijay Miguel, WALLACE [address] [facility] [address] [place] [address] documented as of this encounter Visit Diagnoses Not on filedocumented in this encounter
--- OUTSIDE RECORDS SUMMARY | 2025-11-03 08:59 | XMS_ITS | Clinical Summary ---
Author Organization [facility] Address [address] [place] [address] Care Team Providers Care Credit Assistant Name Role Phone Emily Cardoza MD Primary Care Provider [phone] Allergies Active AllergyReactionsCriticalityNoted SvkdLmytuscpQayuywigeyzYpsuybh24/25/2019 Medications MedicationSigDispense QuantityRefillsLast FilledStart DateEnd DateStatus metFORMIN (GLUCOPHAGE) 500 mg tablet Take 2 tablets by mouth once daily. 100 tablet Active Additional Information Patient not taking.Reason: Course of Therapy Completed, Reported on 07/12/2021 atorvastatin (LIPITOR) 40 mg tablet Take 1 tablet by mouth once daily. 90 tablet Active FARXIGA 5 mg tablet Take 5 mg by mouth every morning.1Active Active Problems ProblemNoted DateDiagnosed DateLocalized swelling, mass and lump, neck10/13/2019 Zpywusycrtezdc09/25/2019Type 2 diabetes mellitus without complication, without long-term current use of jcbbxua9609/10/2019Ventral hernia without obstruction or sajolmmu11/25/2019 Social History Tobacco UseTypesPacks/DayYears UsedDateSmoking Tobacco: VrftejFeknmoanol172883 - 1978Smokeless Tobacco: NeverPHQ-2AnswerDate RecordedPHQ2 Lvkkf55012/13/2018Area Deprivation IndexAnswerDate RecordedNational Score (1-100), lower number is lower riskNot on file10/24/2020State Score (1-10), lower number is lower riskNot on file10/24/2020Data from: https://www.neighborhoodatlas.medicine.[facility].edu/. Last address used for calculationNot on file10/24/2020Sex and Gender Information ValueDate RecordedSex Assigned at BirthNot on fileLegal NelTqxd71/02/2012 9:47 AM ESTGender IdentityNot on fileSexual OrientationNot on file Last Filed Vital Signs Vital SignReadingTime TakenCommentsBlood Ckdfsqsa533/8108 1:02 PM EDT Coefi366207/12/2021 1:02 PM RQWNjdfaoletwm21.9 ??C (98.4 ??F)07/12/2021 1:02 PM EDTRespiratory Mtuq884212/15/2018 8:40 AM ESTOxygen Bdnbztfbwn931%10/15/2019 8:40 AM ESTInhaled Oxygen Concentration--Xzogwg58.2 kg (216 lb 6.4 oz)07/12/2021 1:02 PM DPJPzoumh689.9 cm (6')07/12/2021 1:02 PM EDTBody Mass Index29.3508 1:02 PM EDT Plan of Treatment Health MaintenanceDue DateLast DoneCommentsAnxiety Aernbbujz26/08/1979Depression Obmbjdwim91/08/1979HIV Jydwhuxxe35/08/1979Hepatitis C Qyifqpjre64/08/1979 DTaP,Tdap,Td Vaccine (1 - Tdap)1980CT Fkzyzrzkwvbh37/08/2006Cologuard (FIT-DNA)05/24/20066907Lvziqfeosrm52/08/2006Colorectal Cancer Ymatpcjay77/08/2006 Fecal Occult Blood2006Prostate Cancer Screening Yecvjeteqb46/08/2006 Lmhycnjaxaynq05/08/2006Pneumococcal Vaccine: 50+ (1 of 1 - PCV)2011 Shingrix Vaccine (1 of 2)2011Diabetes Vfyilyjtr86/28/75291612/14/2018, 10/12/2019, 09/10/2019, Additional history existsLipid Pmsshmsiy74/25/2024 09/10/2019Covid-19 Vaccine (1 - season)2025Influenza Vaccine (#1) 2025RSV Vaccine (1 - 1-dose 75+ series)2036 Procedures Procedure NamePriorityDate/TimeAssociated DiagnosisCommentsBASIC METABOLIC PANEL Jpbxesy3010/14/2019 5:45 AM EST LIPID-LIPO PANEL 4Zzczqcv19/25/2019 7:06 AM EDT Pre-operative examination Ventral hernia without obstruction or gangrene Type 2 diabetes mellitus without complication, without long-term current use of insulin (HCC) Hyperlipidemia, unspecified hyperlipidemia type from Last 3 Months or Most Recently Relevant to Health Maintenance Results * (ABNORMAL) BASIC METABOLIC PNL (10/14/2019 5:45 AM EST)ComponentValueRef Range Test MethodAnalysis TimePerformed AtPathologist PaqsrimstQbhvftr581(H)74 - 99 mg/dL10/14/2019 7:00 AM [facility] LaboratoriesComment: The [place] Diabetes Association (ADA) provides guidance for cutoff values for fasting glucose and random glucose. The ADA defines fasting as no caloric intake for at least 8 hours. Fasting plasma glucose results between 100 to 125 mg/dL indicate increased risk for diabetes (prediabetes). Fasting plasma glucose results greater than or equal to 126 mg/dL meet the criteria for diagnosis of diabetes. In the absence of unequivocal hyperglycemia, results should be confirmed by repeat testing. In a patient with classic symptoms of hyperglycemia or hyperglycemic crisis, random plasma glucose results greater than or equal to 200 mg/dL meet the criteria for diagnosis of diabetes. Reference: Standards of Medical Care in Diabetes 2016, [place] Diabetes Association. Diabetes Care. 2016.39(Suppl 1). EWQ788 - 24 mg/dL10/14/2019 7:00 AM [facility] LaboratoriesCreatinine 0.72(L)0.73 - 1.22 mg/dL10/14/2019 7:00 AM [facility] Dumeqb456064 - 144 mmol/L112/14/2018 7:00 AM [facility] Potassium4.23.7 - 5.1 mmol/L112/14/2018 7:00 AM [facility] Srsbswps31068 - 105 mmol/L112/14/2018 7:00 AM [facility] LaboratoriesCO2 2222 - 30 mmol/L112/14/2018 7:00 AM [facility] LaboratoriesAnion Zph461 - 18 mmol/L112/14/2018 7:00 AM [facility] LaboratoriesCalcium8.98.5 - 10.2 mg/dL10/14/2019 7:00 AM [facility] LaboratorieseGFR->6010/14/2019 7:00 AM [facility] LaboratorieseGFR-All Other Races>60.10/14/2019 7:00 AM [facility] LaboratoriesComment: eGFR (Estimated GFR) Units of measure: mL/min/1.73 meters squared eGFR is derived from the reexpressed MDRD Study equation using the following parameters: serum creatinine, age, gender and race. The creatinine assay has been calibrated to be traceable to IDMS. An eGFR <60 mL/min/1.73m2 for >3 months is consistent with chronic kidney disease. Refer to KDOQI guidelines for clinical interpretation. In patients with unstable renal function, e.g. those with acute kidney injury, the eGFR may not accurately reflect actual GFR. Specimen (Source)Anatomical Location / LateralityCollection Method / Volume Collection TimeReceived TimeBlood specimen (specimen)BLOOD SPECIMEN / Unknown 10/14/2019 5:45 AM EST10/14/2019 5:51 AM EST Narrative Authorizing ProviderResult TypeResult StatusJose Mckeon MDLABORATORYFinal ResultPerforming OrganizationAddressCity/State/ZIP CodePhone Number [facility] [address] [facility] [place] [address] [facility] [address] [place] [address] * (ABNORMAL) LIPID PANEL, NONFASTING (09/10/2019 7:06 AM EDT)ComponentValueRef RangeTest MethodAnalysis TimePerformed AtPathologist SignatureTotal Cholesterol, Dtnwejbayf283(H)<200 mg/dL09/10/2019 5:29 PM [facility] LaboratoriesComment: <200 mg/dL, Desirable 200-239 mg/dL, Borderline high >239 mg/dL, High Triglycerides, Tmdrdaetrc480(H)<150 mg/dL09/10/2019 5:29 PM [facility] LaboratoriesComment: <150 mg/dL, Normal 150-199 mg/dL, Borderline high 200-499 mg/dL, High >499 mg/dL, Very high HDL Cholesterol, Rjcigaqfkf50(L)>39 mg/dL09/10/2019 5:29 PM [facility] LaboratoriesComment: 40-59 mg/dL, Acceptable >59 mg/dL, High: Negative risk factor for coronary heart disease <40 mg/dL, Low: Positive risk factor for coronary heart disease LDL Cholesterol Calculated, NonfastingUnable to calculate due to increased Triglycerides. A Direct LDL Cholesterol measurement will not be performed. If clinically indicated, a fasting Basic Lipid Panel (LIPB) may be ordered. <100 mg/dL09/10/2019 5:29 PM [facility] LaboratoriesNon HDL Cholesterol, Htoiczgglw642(H)<130 mg/dL09/10/2019 5:29 PM [facility] LaboratoriesComment: <130 mg/dL, Optimal 130-159 mg/dL, Near optimal/above optimal 160-189 mg/dL, Borderline high 190-219 mg/dL, High >219 mg/dL, Very high Secondary prevention optimal non HDL Cholesterol levels are recommended to be < 100 mg/dL VLDL Cholesterol, NonfastingUnable to calculate due to elevated Triglycerides. <30 mg/dL09/10/2019 5:29 PM [facility] LaboratoriesTotal Chol/HDL Ratio, Nonfasting7.44(H)<5.10 mg/dL09/10/2019 5:29 PM [facility] LaboratoriesLDL/HDL Ratio, NonfastingUnable to calculate due to elevated Triglycerides.<2.54 mg/dL09/10/2019 5:29 PM [facility] Comment: Reference: 1. National Cholesterol Education Program ATP III Guideline At-A-Glance Quick Desk Reference: National Heart, Lung, and Blood Rinard. National Institutes of Health. 2001: NIH Publication No. 01-3305. 2. An International Atherosclerosis Society position paper: global recommendations for the management of dyslipidemia: executive summary, Atherosclerosis. 2014: 232(2):410-413. Specimen (Source)Anatomical Location / LateralityCollection Method / Volume Collection TimeReceived TimeBlood specimen (specimen)PLASMA SPECIMEN / Unknown 09/10/2019 7:06 AM EDT1 7:07 AM EDT Narrative Authorizing ProviderResult TypeResult StatusRadha Brown MDLABORATORY Final ResultPerforming OrganizationAddressCity/State/ZIP CodePhone Number [facility] [address] [place] [address] [facility] [address] [place] [address] from Last 3 Months or Most Recently Relevant to Health Maintenance Insurance Advance Directives TypeDate RecordedPatient RepresentativeExplanationAdvance Directive(s)09/10/2019 4:20 PM Care Teams Team MemberRelationshipSpecialtyStart DateEnd Date Emily Cardoza MD [address] [place] [address] PCP - GeneralFamily Xdstkhvf48/10/19
--- OUTSIDE RECORDS SUMMARY | 2025-11-03 08:59 | XMS_ITS | Encounter Summary ---
Author Organization [facility] Address [address] [place] [address] Care Team Providers Care Sessions Clerk Name Role Phone Nai Fung MD Primary Care Provider [phone] Encounter Details DateTypeDepartmentCare Team (Latest Contact Info)Fafredkpawj05/12/2025Travel Social History Tobacco UseTypesPacks/DayYears UsedDateSmoking Tobacco: UnknownSex and Gender InformationValueDate RecordedSex Assigned at BirthNot on fileLegal SexMale 01/29/2023 7:28 PM EDTGender IdentityNot on fileSexual OrientationNot on file documented as of this encounter Plan of Treatment DateTypeDepartmentCare Team (Latest Contact Info)Fbeybbjmnpg75/26/2026 11:30 AM ESTOffice Visit [facility] [address] [facility] [address] [place] [id number] Vijay Miguel, DPM [address] [facility] [address] [place] [address] documented as of this encounter Visit Diagnoses Not on filedocumented in this encounter Care Teams Team MemberRelationshipSpecialtyStart DateEnd Date Nai Fung MD [address] [facility] [place] [address] PCP - GeneralFamily Wkouyiqq32/12/25documented as of this encounter
== END 2025-11-03 08:52 | disposition home or self-care (01) ==
LOC: LAB 08:55
PROVIDERS: PCP Family Medicine; Visit Provider Family Medicine
DX: E11.65 Type 2 diabetes mellitus with hyperglycemia (principal); Z77.21 Contact with and (suspected) exposure to potentially hazardous body fluids
CPT/HCPCS: 36415; 83036; 87389